=== PATIENT | female | born 1950 | race Caucasian/White ===

== ENCOUNTER → 2018-11-03 14:08 | Outpatient (CLI) | payer MEDICARE, OTHER, SELFPAY ==
--- NOTE | 2018-11-03 | DI.MG.S_ITS ---
BILATERAL DIGITAL SCREENING MAMMOGRAM 3D/2D WITH CAD: 11/03/2018 CLINICAL: Routine screening. Comparison is made to exams dated: 10/14/2017 mammogram, 09/10/2016 mammogram, and 08/23/2015 mammogram - [facility]. There are scattered fibroglandular elements in both breasts. Current study was also evaluated with a Computer Aided Detection (CAD) system. No significant masses, calcifications, or other findings are seen in either breast. There has been no significant interval change. IMPRESSION: NEGATIVE There is no mammographic evidence of malignancy. A 1 year screening mammogram is recommended. This exam was interpreted at Station ID: [id number]. NOTE: For mammograms, a report in lay terms will be sent to the patient. Approximately 15% of breast malignancies will not be visualized mammographically. In the management of a palpable breast mass, a negative mammogram must not discourage biopsy of a clinically suspicious lesion. Electronically Signed By: William kaplan/talha:11/04/2018 12:08:50 letter sent: Normal Exam ACR BI-RADS Category 1: Negative 3341F
== END ==
PROVIDERS: Family Provider Internal Medicine; Visit Provider Internal Medicine
DX: Z12.31 Encounter for screening mammogram for malignant neoplasm of breast (principal)
CPT/HCPCS: 77063; 77067

== ENCOUNTER → 2019-01-05 08:16 | Outpatient (CLI) | payer MEDICARE, OTHER, SELFPAY ==
[2019-01-05 09:33] LABS: Cholesterol 213 mg/dL (140-199); HDL Cholesterol 77 mg/dL (40-60); LDL Cholesterol Calculated 123 mg/dL (<100); Triglycerides 63 mg/dL (35-150)
[2019-01-05 09:46] LABS: Vitamin D 25 Hydroxy (D3) 42.6 ng/mL (30.0-100.0)
== END ==
PROVIDERS: Family Provider Internal Medicine; Visit Provider Internal Medicine
DX: M81.0 Age-related osteoporosis without current pathological fracture (principal); Z78.0 Asymptomatic menopausal state; E78.5 Hyperlipidemia, unspecified; Z90.722 Acquired absence of ovaries, bilateral
CPT/HCPCS: 36415; 77080; 80061; 82306

== ENCOUNTER 2019-03-04 08:20 | Day surgery (SDC) | payer MEDICARE, OTHER, SELFPAY ==
--- NOTE | 2019-03-04 | PATH_ITS ---
[facility] Accession Number: [id number] . 01 Material submitted: . CECAL POLYP . 02 Diagnosis: Cecal Polyp: Superficial portion of colorectal mucosa with a prominent lymphoid aggregate and no significant histomorphologic abnormality. [facility]/03/05/2019 . 02 Electronically signed: . Bernie Barnes MD, Pathologist NPI- [id number] . 01 Gross description: . CECAL POLYP: Received in formalin is 1 fragment(s) of rodgers, soft tissue measuring 0.2 x 0.2 x 0.2 cm which is entirely submitted and submitted entirely in 1 cassette(s) /DMC /DMC . 02 Pathologist provided ICD-10: K51.40 . 02 CPT . 671664 Performed at: 01 [facility] [address] [id number] MD William Ortega MD Phone: [phone] Performed at: 02 [facility] [address] [place], [place] [id number] MD Tatianna Patel MD Phone: [phone]
[2019-03-04 08:56] VITALS: BP 94/58; PULSE 68; RESP 15; TEMP 36.5; O2SAT 96; BMI 23.5
[2019-03-04] MEDS: SODIUM CHLORIDE 0.9% 1,000 ML 200 ML IV (09:13)
--- NOTE | 2019-03-04 10:07 | PM.HP.1 ---
History of Present Illness Chief complaint: [id number] Patient History Surgical History History of tonsillectomy Status post hysterectomy Social History household members: spouse Family & Social History Social History: household members spouse Meds Home Medications Medication Instructions Recorded Confirmed Type MELATONIN (#MELATONIN) PO HS #0 10/23/11 History [OIL BLEND] PO Q DAY #0 10/23/11 History Fish Oil #0 08/19/16 History nystatin 5 ml PO TID PRN #60 ml 08/19/16 Rx ranitidine HCl 150 mg PO BID 03/04/19 03/04/19 History Allergies Allergy/AdvReac Type Severity Reaction Status Date / Time levofloxacin Allergy Severe tendon Verified 03/04/19 08:54 issue codeine Allergy Mild Nausea Verified 03/04/19 08:54 Sulfa (Sulfonamide Allergy Mild possible Verified 03/04/19 08:54 Antibiotics) thrush [SULFA (SULFONAMIDE ANTIBIOTICS)] Exam Vital Signs (past 8 hours): - 03/04/19 08:56 Temperature 97.7 F Pulse Rate 68 Respiratory Rate 15 Blood Pressure 94/58 L Pulse Oximetry 96 Oxygen Delivery Method Room Air Narrative Exam Narrative: Awake alert and oriented x3, the pulse is equal round reactive to light, regular rate and rhythm, lungs clear to auscultation bilaterally, abdomen soft nontender nondistended, lower extremities without edema Assessment & Plan Assessment & Plan narrative: Family history of colon cancer for colonoscopy
[2019-03-04] MEDS: MIDAZOLAM 5 MG/5 ML VIAL IV (10:29)
[2019-03-04] MEDS: fentaNYL 250 MCG/5 ML INJ IV (10:35)
--- NOTE | 2019-03-04 10:43 | PM.OP.ENDO ---
Operative Date/Time/Diagnoses Date of procedure: 03/04/19 Procedure & Clinicians Study performed: Colonoscopy with biopsy Indications: Family history of colon cancer. Last colonoscopy 5 years ago Moderate conscious sedation was administered by the endoscopy nurse and supervised by the endoscopist. The following parameters were monitored: Oxygen saturation, heart rate, blood pressure, and response to care. Sedation: 8 mg midazolam, 200 mcg fentanyl Procedure Notes Procedure in detail: Prior to the procedure, history and physical was performed, and patient medications and allergies were reviewed. Preprocedure nursing history and assessment was reviewed. Patient identification and proposed procedure were verified by the physician and nurse in the procedure room. The physical status of the patient was reassessed after the procedure. After informed consent was obtained including risks, benefits, and alternatives, the scope was passed under direct vision. Throughout the procedure, the patient's blood pressure, pulse, and oxygen saturations were monitored continuously. The colonoscope was introduced through the anus and advanced to the cecum as identified by the appendiceal orifice and ileocecal valve. The patient tolerated the procedure well. Bowel prep was deemed adequate to detect polyps greater than 5 mm. GREG and perianal examinations were unremarkable. Retroflexion in the rectum was unremarkable Many medium mouth diverticula noted in the sigmoid colon A 2 mm sessile polyp in the cecum was removed with a Jumbo biopsy forceps and retrieved Impression: Sigmoid colon diverticulosis 2 mm cecal polyp removed Sedation minutes: 29 Plan for aftercare: Recommendations: Follow-up pathology results Repeat colonoscopy in 5 years for screening purposes High fiber diet Resume home medications Discharged home with escort
[2019-03-04 10:44] VITALS: BP 103/60; PULSE 80; RESP 12; TEMP 36.1; O2SAT 96
[2019-03-04 10:46] VITALS: BP 96/55; PULSE 80; RESP 10; O2SAT 96
[2019-03-04 10:51] VITALS: BP 114/56; PULSE 85; RESP 12; O2SAT 99
[2019-03-04 10:56] VITALS: BP 109/61; PULSE 86; RESP 14; TEMP 36.3; O2SAT 97
[2019-03-04 11:01] VITALS: BP 108/64; PULSE 88; RESP 15; TEMP 36.6; O2SAT 94
== END 2019-03-04 11:19 | disposition home or self-care (01) ==
PROVIDERS: Family Provider Internal Medicine; PCP Internal Medicine; Visit Provider Internal Medicine
PROC: 0DJD8ZZ Inspection of Lower Intestinal Tract, Via Natural or Artificial Opening Endoscopic (ICD-10-PCS; CPT 45378; principal; 2019-03-04 09:30)
DX: Z12.11 Encounter for screening for malignant neoplasm of colon (principal); Z80.0 Family history of malignant neoplasm of digestive organs; K57.30 Diverticulosis of large intestine without perforation or abscess without bleeding; K51.40 Inflammatory polyps of colon without complications
CPT/HCPCS: 45380; 88305; J2250; J3010

== ENCOUNTER → 2019-04-06 10:59 | Outpatient (CLI) | payer MEDICARE, OTHER, SELFPAY ==
--- NOTE | 2019-04-06 | DI.RAD.S_ITS ---
PROCEDURE: XR PELVIS 1-2V INDICATIONS: left buttock pain TECHNIQUE: A single view(s) of the pelvis acquired. COMPARISON: [facility], , PELVIS 1 OR 2 VIEWS, 03/27/2012, 14:49. FINDINGS: Bones: No fractures or dislocations. No suspicious bony lesions. Soft tissues: Visualized bowel gas pattern is normal. Mild increased quantity of stool. No suspicious soft tissue calcifications. IMPRESSION: No acute process. Dictated by: Martine Gonsalez M.D. on 04/06/2019 at 12:50 Approved by: Martine Gonsalez M.D. on 04/06/2019 at 12:51
--- NOTE | 2019-04-06 | DI.RAD.S_ITS ---
PROCEDURE: XR LUMBAR SPINE 2-3V INDICATIONS: left buttock pain TECHNIQUE: 3 views of the lumbar spine were acquired. COMPARISON: [facility], , L-SPINE 2-3 VIEWS, 03/27/2012, 14:49. FINDINGS: Bones: 5 [id number] vertebrae are present. Chronic, moderate leftward curvature secondary to asymmetric right-sided L2-3 disc disease. Mild leftward subluxation of L3 on 4. AP alignment is normal. Moderate to severe disc height loss at L2-3 on the right and L3-4 diffusely. Mild chronic disc height loss at L4-5 and L5-S1. No vertebral body compression fractures. No suspicious bony lesions. Soft tissues: Overlying bowel gas pattern is normal. No suspicious soft tissue calcifications. IMPRESSION: Progression of degenerative disc changes resulting in leftward curvature in the mid lumbar spine. Dictated by: Martine Gonsalez M.D. on 04/06/2019 at 12:51 Approved by: Martine Gonsalez M.D. on 04/06/2019 at 12:55
== END ==
PROVIDERS: Family Provider Internal Medicine; PCP Internal Medicine; Visit Provider Internal Medicine
DX: M79.18 Myalgia, other site (principal); M47.816 Spondylosis without myelopathy or radiculopathy, lumbar region
CPT/HCPCS: 72100; 72170

== ENCOUNTER → 2019-09-24 12:40 | Outpatient (CLI) | payer MEDICARE, OTHER, SELFPAY ==
--- NOTE | 2019-09-24 | DI.MRI.S_ITS ---
PROCEDURE: MR LUMBAR SPINE WO CON INDICATIONS: Low back pain TECHNIQUE: Noncontrast sagittal T1 spin echo and T2 fast echo, sagittal STIR, axial T1 and T2 fast spin echo through the lumbar spine. In cases with scoliosis, additional coronal T2 fast spin echo may be performed. COMPARISON: [facility], CR, L-SPINE 2-3 VIEWS, 03/27/2012, 14:49. [facility], CR, XR LUMBAR SPINE 2-3V, 04/06/2019, 11:18. FINDINGS: Image quality: Diagnostic, with note made of motion artifact. Alignment and Curvature: There is moderate levoconvex lumbar scoliosis Bone Marrow: Marrow is of normal overall signal. No acute vertebral body compression fractures. Spinal Cord: Conus medullaris terminates at the T12 level. Visualized cord demonstrates normal signal and size. Paraspinous Soft Tissues: No paravertebral masses. T12-L1: Normal appearance. L1-L2: The disc height is well-preserved. Loss of disc signal is seen at this level. Mild generalized disc bulge is seen. No significant neural foraminal or central canal narrowing can be seen. L2-L3: At least moderate loss of disc height and disc signal are seen. Reactive marrow endplate changes are seen, which are hyperintense on T1-weighted and T2-weighted imaging and most consistent with fatty metaplasia (Modic type II changes). Moderate disc bulge is seen, which is eccentric to the right. There is moderate right-sided and no left-sided neural foraminal narrowing seen. Moderate central canal narrowing is seen. L3-L4: At least moderate loss of disc height and disc signal are seen. Reactive marrow endplate changes are seen, which are hyperintense on T1-weighted and T2-weighted imaging and most consistent with fatty metaplasia (Modic type II changes). Moderate generalized disc bulge is seen. Moderate to prominent facet hypertrophy is seen. There is associated mild to moderate hypertrophy of the ligamentum flavum. There is moderate to severe left-sided and at least moderate right-sided neural foraminal narrowing seen. There is a degree of compression seen upon the exiting nerve roots. Moderate central canal narrowing is seen. L4-L5: Mild to moderate loss of disc height and disc signal are seen. Moderate disc bulge is seen, which is eccentric to the left. Moderate facet joint hypertrophy is seen. There is moderate to severe left-sided neural foraminal narrowing seen, with associated compression upon the exiting left L4 nerve root. No significant right-sided neural foraminal narrowing is seen. L5-S1: The disc height and disc signal are relatively well-preserved. Minimal to mild disc bulge is seen. There is mild left-sided and no right-sided neural foraminal narrowing seen. No central canal narrowing is seen. IMPRESSION: Levoconvex scoliosis and multiple levels of degenerative change are seen. These degenerative changes are most prominent at L2-L3 and L3-L4. Several levels of exiting nerve root compression can be seen. Dictated by: Jesse Toney M.D. on 09/24/2019 at 13:02 Approved by: Jesse Toney M.D. on 09/24/2019 at 13:10
== END ==
PROVIDERS: Family Provider Internal Medicine; PCP Internal Medicine; Visit Provider Physical Medicine & Rehabilitation Pain Medicine
DX: M54.5 Low back pain (principal); M47.816 Spondylosis without myelopathy or radiculopathy, lumbar region; M41.86 Other forms of scoliosis, lumbar region
CPT/HCPCS: 72148

== ENCOUNTER → 2019-10-22 14:21 | Outpatient (ROUT) | payer MEDICARE, OTHER, SELFPAY | PROVIDERS: Family Provider Internal Medicine; PCP Internal Medicine; Visit Provider Physician Assistant | DX: N39.0 Urinary tract infection, site not specified (principal) | CPT/HCPCS: 87077; 87086; 87186 ==

== ENCOUNTER → 2019-11-30 08:56 | Outpatient (CLI) | payer MEDICARE, OTHER, SELFPAY ==
[2019-11-30 10:54] LABS: BUN Creatinine Ratio 21.3 (6-22); Blood Urea Nitrogen 17 mg/dL (7-17); Calcium 9.2 mg/dL (8.4-10.2); Carbon Dioxide 28 mmol/L (22-32); Chloride 101 mmol/L (98-107); Cholesterol 247 mg/dL (140-199); Estimated Glomerular Filt Rate > 60.0 mL/min (>60); Glucose 100 mg/dL (80-110); HDL Cholesterol 80 mg/dL (40-60); HEMOLYSIS < 15 (0-50); LDL Cholesterol Calculated 155 mg/dL (<100); Potassium 4.5 mmol/L (3.4-5.1); Sodium 137 mmol/L (137-145); Triglycerides 60 mg/dL (35-150)
== END ==
PROVIDERS: PCP Internal Medicine; Visit Provider Internal Medicine
DX: E78.5 Hyperlipidemia, unspecified (principal); M81.0 Age-related osteoporosis without current pathological fracture
CPT/HCPCS: 36415; 80048; 80061

== ENCOUNTER → 2020-01-04 14:33 | Outpatient (ROUT) | payer MEDICARE, OTHER, SELFPAY | PROVIDERS: PCP Internal Medicine; Visit Provider Physician Assistant | DX: R39.9 Unspecified symptoms and signs involving the genitourinary system (principal) | CPT/HCPCS: 87086 ==

== ENCOUNTER → 2020-05-23 15:11 | Outpatient (CLI) | payer MEDICARE, OTHER, SELFPAY ==
--- NOTE | 2020-05-23 | DI.MG.S_ITS ---
BILATERAL DIGITAL SCREENING MAMMOGRAM 3D/2D WITH CAD: 05/23/2020 CLINICAL: Routine screening. Comparison is made to exams dated: 11/03/2018 mammogram, 10/14/2017 mammogram, 09/10/2016 mammogram, 08/23/2015 mammogram, and 07/02/2014 mammogram - [facility]. There are scattered fibroglandular elements in both breasts. Current study was also evaluated with a Computer Aided Detection (CAD) system. No significant masses, calcifications, or other findings are seen in either breast. There has been no significant interval change. IMPRESSION: NEGATIVE There is no mammographic evidence of malignancy. A 1 year screening mammogram is recommended. This exam was interpreted at Station ID: [id number]. NOTE: For mammograms, a report in lay terms will be sent to the patient. Approximately 15% of breast malignancies will not be visualized mammographically. In the management of a palpable breast mass, a negative mammogram must not discourage biopsy of a clinically suspicious lesion. Electronically Signed By: Adam frausto/talha:05/23/2020 17:24:59 letter sent: Normal Exam ACR BI-RADS Category 1: Negative 3341F
== END ==
PROVIDERS: PCP Internal Medicine; Referring Provider Internal Medicine; Visit Provider Internal Medicine
DX: Z12.31 Encounter for screening mammogram for malignant neoplasm of breast (principal)
CPT/HCPCS: 77063; 77067

== ENCOUNTER → 2020-05-28 14:16 | Outpatient (CLI) | payer MEDICARE, OTHER, SELFPAY ==
[2020-05-29 10:23] LABS: COVID19 Sendout Not Detected (Not Detect)
== END ==
PROVIDERS: PCP Internal Medicine; Visit Provider Physician Assistant
DX: Z11.59 Encounter for screening for other viral diseases (principal)
CPT/HCPCS: 87635

== ENCOUNTER 2020-05-31 07:26 | Day surgery (SDC) | payer MEDICARE, OTHER, SELFPAY ==
[2020-05-31] MEDS: PROPARACAINE 0.5% OPHTH SOL 2 DROPS EYE-OP (08:17)
[2020-05-31 08:19] VITALS: BP 97/67; PULSE 70; RESP 12; TEMP 36.6; O2SAT 96; BMI 23.2
[2020-05-31] MEDS: CATARACT EYE COMPOUND (10 DROPS/SYRINGE) 3 DROPS EYE-OP (08:25)
--- NOTE | 2020-05-31 09:29 | PM.PREOP ---
Pre-operative Note Interval Note History & Physical reviewed/Exam performed by Physician: Yes Changes to H&P: No
--- NOTE | 2020-05-31 09:29 | PM.OP.1 ---
Operative Date/Time/Diagnoses Pre-op diagnosis: Nuclear cataract right eye Procedure & Clinicians Procedure: Cataract Surgery Same procedure as scheduled: Yes Surgeon: Claudio Lawson Anesthesia Type: MAC +/- and Sedation Operative Notes Procedure in detail: Patient brought to the operating suite. Tetracaine drops placed in the right eye. Patient was prepped and draped in sterile manner. Wire lid speculum was placed in the eye. Betadine drops were placed on the eye. This was irrigated. Lidocaine jelly was placed on the eye. A paracentesis port was created with a side-port blade. 0.1 mL 1% preservative free lidocaine was injected into the anterior chamber. The anterior chamber was deepened with viscoelastic. 2.6 mm keratome was used to create a temporal clear corneal incision. Cystotome and Utrata forceps were used to create continuous tear capsulorrhexis. Balanced salt solution was used to hydro dissect the nucleus. The phacoemulsification handpiece was inserted and the nucleus was removed using the stop and chop technique. The irrigation aspiration handpiece was inserted and the remaining cortex was removed. Anterior chamber was deepened with viscoelastic. An Avila ZCB00 intraocular lens with a power of 21.5 was injected into the capsular bag. Irrigation aspiration handpiece was inserted and the remaining viscoelastic was removed. Incision was hydrated with balanced salt solution and found to be leak free with pressure with Weck-Chelsea sponges. 0.1 mL Vigamox injected anterior chamber. 0.3 mL Kenalog 10 mg was injected subconjunctivally. Lid speculum was removed. The patient left the operating room in excellent condition. Complications: none Post-operative Condition: stable Disposition: same day surgery
[2020-05-31] MEDS: MOXIFLOXACIN INJ 5 MG/ML VIAL EYE-OP (09:44)
[2020-05-31] MEDS: CHONDROIDTIN/SOD HYALURONATE 1.05 ML SYRINGE INTRAOCULA (09:44)
[2020-05-31] MEDS: LIDOCAINE JELLY 2% 5 ML 1 APPLIC TOP (09:44)
[2020-05-31] MEDS: TETRACAINE 0.5% OPHTH DROPS 4 ML 2 DROPS EYE-OP (09:45)
[2020-05-31] MEDS: BALANCED SALT IRRIG SOLN NO.2 500 ML, EPINEPHrine 1 MG IRR (09:45)
[2020-05-31] MEDS: PHENYLEPHRINE/LIDOCAINE VIAL (OR) 0.2 ML EYE-OP (09:45)
[2020-05-31] MEDS: TRIAMCINOLONE 50 MG/5 ML VIAL INJ (09:45)
[2020-05-31 10:10] VITALS: BP 112/71; PULSE 57; RESP 16; TEMP 36.2; O2SAT 100
== END 2020-05-31 10:19 | disposition home or self-care (01) ==
PROVIDERS: PCP Internal Medicine; Referring Provider Internal Medicine; Visit Provider Ophthalmology
PROC: (CPT 66984; principal; 2020-05-31 09:15)
DX: H25.11 Age-related nuclear cataract, right eye (principal); K21.9 Gastro-esophageal reflux disease without esophagitis
CPT/HCPCS: 66984; J0171; J2250; J3010; J3301

== ENCOUNTER → 2020-06-11 12:07 | Outpatient (CLI) | payer MEDICARE, OTHER, SELFPAY ==
[2020-06-12 18:10] LABS: COVID19 Sendout Not Detected (Not Detect)
== END ==
PROVIDERS: PCP Internal Medicine; Visit Provider Physician Assistant
DX: Z01.812 Encounter for preprocedural laboratory examination (principal)
CPT/HCPCS: 87635

== ENCOUNTER 2020-06-14 07:09 | Day surgery (SDC) | payer MEDICARE, OTHER, SELFPAY ==
[2020-06-14] MEDS: PROPARACAINE 0.5% OPHTH SOL 2 DROPS EYE-OP (07:40)
[2020-06-14] MEDS: CATARACT EYE COMPOUND (10 DROPS/SYRINGE) 3 DROPS EYE-OP (07:43)
[2020-06-14 07:44] VITALS: BMI 21.6
[2020-06-14 07:49] VITALS: BP 117/59; PULSE 70; RESP 20; TEMP 36.4; O2SAT 98
--- NOTE | 2020-06-14 08:42 | P.OP_ITS ---
Operative Date/Time/Diagnoses Pre-op diagnosis: Nuclear Cataract Left eye Post-op diagnosis: same Procedure & Clinicians Same procedure as scheduled: Yes Surgeon: Claudio Lawson Anesthesia Type: MAC +/- and Sedation Operative Notes Procedure in detail: Patient brought to the operating suite. Tetracaine drops placed in the left eye. Patient was prepped and draped in sterile manner. Wire lid speculum was placed in the eye. Betadine drops were placed on the eye. This was irrigated. Lidocaine jelly was placed on the eye. A paracentesis port was created with a side-port blade. 0.1 mL 1% preservative free lidocaine was injected into the anterior chamber. The anterior chamber was deepened with viscoelastic. 2.6 mm keratome was used to create a temporal clear corneal incision. Cystotome and Utrata forceps were used to create continuous tear capsulorrhexis. Balanced salt solution was used to hydro dissect the nucleus. The phacoemulsification handpiece was inserted and the nucleus was removed using the stop and chop technique. The irrigation aspiration handpiece was inserted and the remaining cortex was removed. Anterior chamber was deepened with viscoe lastic. An Avila ZCB00 intraocular lens with a power of 21.5 was injected into the capsular bag. Irrigation aspiration handpiece was inserted and the remaining viscoelastic was removed. Incision was hydrated with balanced salt solution and found to be leak free with pressure with Weck-Chelsea sponges. 0.1 mL Vigamox injected anterior chamber. 0.3 mL Kenalog 10 mg was injected subconjunctivally. Lid speculum was removed. The patient left the operating room in excellent condition. Complications: none Post-operative Condition: stable Disposition: same day surgery
--- NOTE | 2020-06-14 08:42 | PM.PREOP ---
Pre-operative Note Interval Note History & Physical reviewed/Exam performed by Physician: Yes Changes to H&P: No
[2020-06-14] MEDS: MOXIFLOXACIN INJ 5 MG/ML VIAL EYE-OP (09:01)
[2020-06-14] MEDS: CHONDROIDTIN/SOD HYALURONATE 1.05 ML SYRINGE INTRAOCULA (09:01)
[2020-06-14] MEDS: PHENYLEPHRINE/LIDOCAINE VIAL (OR) 0.2 ML EYE-OP (09:01)
[2020-06-14] MEDS: LIDOCAINE JELLY 2% 5 ML 1 APPLIC TOP (09:01)
[2020-06-14] MEDS: TRIAMCINOLONE 50 MG/5 ML VIAL INJ (09:02)
[2020-06-14] MEDS: TETRACAINE 0.5% OPHTH DROPS 4 ML 2 DROPS EYE-OP (09:02)
[2020-06-14] MEDS: BALANCED SALT IRRIG SOLN NO.2 500 ML, EPINEPHrine 1 MG IRR (09:02)
[2020-06-14 09:15] VITALS: BP 117/64; PULSE 88; RESP 16; TEMP 36.6; O2SAT 100
== END 2020-06-14 09:30 | disposition home or self-care (01) ==
PROVIDERS: PCP Internal Medicine; Referring Provider Ophthalmology; Visit Provider Ophthalmology
PROC: (CPT 66984; principal; 2020-06-14 08:45)
DX: H25.12 Age-related nuclear cataract, left eye (principal)
CPT/HCPCS: 66984; J0171; J2250; J3301

== ENCOUNTER → 2020-12-26 09:24 | Outpatient (CLI) | payer MEDICARE, OTHER, SELFPAY ==
--- NOTE | 2020-12-26 09:28 | DI.RAD.S_ITS ---
PROCEDURE: XR LUMBAR SPINE MIN 4V INDICATIONS: LBP and left hip pain TECHNIQUE: 4 views of the lumbar spine were acquired. COMPARISON: [facility], CR, XR LUMBAR SPINE 2-3V, 04/06/2019, 11:18. FINDINGS: Bones: 5 nonrib-bearing vertebrae are present. There is moderate levoscoliosis of thoracolumbar spine centered at L1-2 level worsened since 2019 study. Degenerative endplate changes at L2-3 through L5-S1 levels are seen not significantly changed from prior study. No vertebral body compression fractures. No suspicious bony lesions. Soft tissues: Overlying bowel gas pattern is normal. No suspicious soft tissue calcifications. Oblique images: No pars defects. Bilateral bony foraminal stenosis are likely present at L3-4 and L4-5 levels. IMPRESSION: Interval slight worsening of leftward scoliosis of lumbar spine centered at L1-2 level. Degenerative disc disease at L2-3 through L5-S1 levels. No gross pars defect. No acute compression fracture. Suggestion of bilateral bony foraminal stenosis at L3-4 and L4-5 levels. Dictated by: Rudolph Riddle M.D. on 12/26/2020 at 9:49 Approved by: Rudolph Riddle M.D. on 12/26/2020 at 9:50
== END ==
PROVIDERS: PCP Internal Medicine; Referring Provider Physical Medicine & Rehabilitation; Visit Provider Physical Medicine & Rehabilitation
DX: M51.16 Intervertebral disc disorders with radiculopathy, lumbar region (principal); M51.17 Intervertebral disc disorders with radiculopathy, lumbosacral region; M25.552 Pain in left hip; M16.9 Osteoarthritis of hip, unspecified; M41.9 Scoliosis, unspecified
CPT/HCPCS: 72110

== ENCOUNTER → 2021-01-06 08:09 | Outpatient (CLI) | payer MEDICARE, OTHER, SELFPAY ==
--- NOTE | 2021-01-06 08:10 | DI.MRI.S_ITS ---
PROCEDURE: MR LUMBAR SPINE WO CON INDICATIONS: UPDATE IMAGING TECHNIQUE: Noncontrast sagittal T1 spin echo and T2 fast echo, sagittal STIR, axial T1 and T2 fast spin echo through the lumbar spine. In cases with scoliosis, additional coronal T2 fast spin echo may be performed. COMPARISON: [facility], CR, XR LUMBAR SPINE MIN 4V, 12/26/2020, 9:28. [facility], MR, MR LUMBAR SPINE WO CON, 09/24/2019, 12:58. FINDINGS: Image quality: Excellent. Alignment and Curvature: There is leftward curvature with apex at L2-3. Bone Marrow: Marrow is of normal overall signal. Schmorl's nodes are noted along the inferior endplates of L2, L3, L4 as well as superior endplates of L3, L4 and L5. No acute vertebral body compression fractures. Spinal Cord: Conus medullaris terminates at the T12 level. Visualized cord demonstrates normal signal and size. Paraspinous Soft Tissues: No paravertebral masses. Discs: Moderate to severe desiccation is present throughout the lumbar spine most severe at L2-3, L3-4 and L4-5. L1-L2: Mild disc bulge without spinal stenosis or foraminal narrowing. Facet and ligamentum flavum hypertrophy. No interval change. L2-L3: Mild asymmetric disc bulge causing mild compromise of the right lateral recess. Moderate right foraminal narrowing is present. Moderate spinal stenosis. Facet and ligamentum flavum hypertrophy are present. No interval change. L3-L4: Mild disc bulge with moderate spinal stenosis. Moderate to severe left and moderate right foraminal narrowing. There is a slight right and mild left appearance of compression of the exiting nerve root, unchanged. Facet and ligamentum flavum hypertrophy are present. L4-L5: Mild disc bulge with mild leftward component. Moderate spinal stenosis is present. Moderate to severe left foraminal narrowing with mild compression of the exiting left L4 nerve root. Facet and ligamentum flavum hypertrophy are present. No interval change. L5-S1: Mild disc bulge without spinal stenosis. Mild left foraminal narrowing with facet and ligamentum flavum hypertrophy. IMPRESSION: 1. Multilevel degenerative changes, stable compared to prior exam. 2. Multilevel foraminal narrowing most severe at L3-4, L4-5 secondary to facet/ligamentum flavum arthropathy. Dictated by: Juanita Hagan M.D. on 01/06/2021 at 10:51 Approved by: Juanita Hagan M.D. on 01/06/2021 at 11:14
== END ==
PROVIDERS: PCP Internal Medicine; Referring Provider Physical Medicine & Rehabilitation; Visit Provider Physical Medicine & Rehabilitation
DX: M47.26 Other spondylosis with radiculopathy, lumbar region (principal); M48.061 Spinal stenosis, lumbar region without neurogenic claudication; M41.80 Other forms of scoliosis, site unspecified
CPT/HCPCS: 72148

== ENCOUNTER → 2021-01-30 14:24 | Outpatient (CLI) | payer MEDICARE, OTHER, SELFPAY ==
[2021-01-30 16:34] LABS: COVID19 -Nasal RAPID Negative (Negative)
== END ==
PROVIDERS: PCP Internal Medicine; Visit Provider Physical Medicine & Rehabilitation
DX: Z20.822 Contact with and (suspected) exposure to COVID-19 (principal)
CPT/HCPCS: 87635; C9803

== ENCOUNTER 2021-01-31 14:13 | Outpatient (CLI) | payer MEDICARE, OTHER, SELFPAY ==
[2021-01-31] VITALS (7 sets, daily range): BP systolic 103–137; BP diastolic 53–63; PULSE 67–83; RESP 12–18; TEMP 36.7; O2SAT 98–100
--- NOTE | 2021-01-31 14:14 | DI.RAD.S_ITS ---
PROCEDURE: PAIN SI JOINT INJECTION INDICATIONS: SACROILIAC DISORDER COMPARISON: None. FINDINGS: Fluoroscopic spot filming was performed to verify placement of spinal needles at the left sacroiliac joint as labeled on the films. Appropriate location(s) of the needle tip(s) was confirmed by injection of iodinated contrast. Dictated by: Jeovany Melendrez M.D. on 01/31/2021 at 15:04 Approved by: Jeovany Melendrez M.D. on 01/31/2021 at 15:04
[2021-01-31] MEDS: MIDAZOLAM 5 MG/5 ML VIAL IV (14:33)
[2021-01-31] MEDS: BETAMETHASONE 30 MG/5 ML MDV 12 MG INJ (14:36)
[2021-01-31] MEDS: BUPIVACAINE 0.5% (PF) VIAL 2 ML INJ (14:36)
[2021-01-31] MEDS: IOPAMIDOL 15 ML VIAL 3 ML INJ (14:36)
--- NOTE | 2021-01-31 14:47 | P.PCN_ITS ---
Date/Time/Diagnoses Date of procedure: 01/31/21 Time of procedure: 14:47 Pre-procedure diagnosis: Sacroiliac Joint Pain/DJD Post-procedure diagnosis: same Procedure Notes Procedure: Fluoroscopically guided contrast controlled left sacroiliac joint injection Indications: Lynn is referred by for treatment of left sacroiliac joint DJD Physician: Denis Maurer Total Fluoroscopy time (seconds): 10 Total sedation minutes: 8 Complications: none Procedure in detail & Post-procedure care: DESCRIPTION OF PROCEDURE Fluoroscopic guided, contrast controlled left sacroiliac joint injection Following review of allergies and review of potential side effects and complications, including, but not necessarily limited to, infection, allergic reaction, local tissue breakdown, temporary as well as permanent nerve injury, paralysis, stroke and possible , the patient indicated that they understood and agreed to proceed. An informed consent was signed by the patient, witnessed by a nurse, and placed in the patient's chart. Additionally, other treatment options including modalities, medications, and physical therapy were reviewed with the patient. After review of previous anaesthesic history and IV conscious sedation the patient was deemed safe to proceed with today?s procedure with IV conscious sedation as ASA class II designation. Safety time-out was performed to confirm patient ID, procedure to be performed and site of procedure. IV sedation was accomplished with a combination of 2mg of Versed administered by the RN after DO order, titrated to patient comfort during the course of the procedure while the patient remained responsive to all verbal commands. In the prone position following sterile prep and drape of the pelvic region, the hyper lucency on in the inferior aspect of the left sacroiliac joint was identified fluoroscopically the skin was anesthetized be a 25 gauge 1 eventual with approximately 2cc of 1% lidocaine solution. At this point, a 22 gauge 3inch spinal needle was atraumatically introduced and advanced under fluoroscopic guidance into the inferior aspect of the left sacroiliac joint. Following negative aspiration, approximately 0.3cc of Isovue-300 was injected c onfirming intra-articular placement without vascular uptake. Radiographic data, including multiple fluoroscopic views of the pelvis, reveals a spinal needle in the left sacroiliac joint hyper lucent zone. Subsequent view show flow contrast tear superiorly and inferiorly within the joint capsule without vascular intrathecal uptake. At this point a total of 1cc or 0.5% Marcaine was combined with 1cc of 6mg of betamethasone was injected without incident. The patient tolerated the procedure well without signs or symptoms of complications prior to transfer to the recovery area for further monitoring. The patient was then transferred to the recovery area with a bur observed for an appropriate time after the injection. The patient reverted a vas score of 7 prior to the procedure and postprocedure vas of 1. POSTOP INSTRUCTIONS The patient was provided with a pain like to continue to record the patient's response to the target specific procedure prior to the patient's follow-up visit with the referring physician. Additionally, specific post injection care instructions and a contact number to our office were provided if concerns arise regarding the possible complications associated with procedure are suspected.
== END 2021-01-31 15:10 | disposition home or self-care (01) ==
LOC: RAD 14:13
PROVIDERS: PCP Internal Medicine; Referring Provider Internal Medicine; Visit Provider Physical Medicine & Rehabilitation
DX: M53.3 Sacrococcygeal disorders, not elsewhere classified (principal); M46.1 Sacroiliitis, not elsewhere classified
CPT/HCPCS: 27096; J0702; J2250; J3010

== ENCOUNTER → 2021-02-13 07:07 | Outpatient (CLI) | payer MEDICARE, OTHER, SELFPAY ==
[2021-02-13 08:26] LABS: Alanine Aminotransferase 18 IU/L (<35); Albumin 3.9 g/dL (3.5-5.0); Albumin Globulin Ratio 1.6 (1.0-2.8); Alkaline Phosphatase 52 U/L (38-126); Aspartate Aminotransferase 27 IU/L (14-36); BUN Creatinine Ratio 26.3 (6-22); Bilirubin Total 0.4 mg/dL (0.2-1.3); Blood Urea Nitrogen 20 mg/dL (7-17); Calcium 9.1 mg/dL (8.4-10.2); Carbon Dioxide 29 mmol/L (22-32); Chloride 101 mmol/L (98-107); Cholesterol 223 mg/dL (140-199); Estimated Glomerular Filt Rate > 60.0 mL/min (>60); Globulin 2.5 g/dL (1.7-4.1); Glucose 100 mg/dL (80-110); HDL Cholesterol 71 mg/dL (40-60); HEMOLYSIS < 15 (0-50); LDL Cholesterol Calculated 141 mg/dL (<100); Potassium 3.9 mmol/L (3.4-5.1); Sodium 132 mmol/L (137-145); Total Protein 6.4 g/dL (6.3-8.2); Triglycerides 53 mg/dL (35-150)
== END ==
PROVIDERS: PCP Internal Medicine; Referring Provider Internal Medicine; Visit Provider Internal Medicine
DX: M81.0 Age-related osteoporosis without current pathological fracture (principal); E78.5 Hyperlipidemia, unspecified
CPT/HCPCS: 36415; 80053; 80061

== ENCOUNTER → 2021-02-18 08:08 | Outpatient (CLI) | payer MEDICARE, OTHER, SELFPAY ==
[2021-02-18 09:20] LABS: Alanine Aminotransferase 17 IU/L (<35); Albumin Globulin Ratio 1.7 (1.0-2.8); Alkaline Phosphatase 58 U/L (38-126); Aspartate Aminotransferase 26 IU/L (14-36); Bilirubin Total 0.4 mg/dL (0.2-1.3); Blood Urea Nitrogen 20 mg/dL (7-17); Calcium 9.3 mg/dL (8.4-10.2); Carbon Dioxide 26 mmol/L (22-32); Chloride 102 mmol/L (98-107); Estimated Glomerular Filt Rate > 60.0 mL/min (>60); Globulin 2.3 g/dL (1.7-4.1); Glucose 102 mg/dL (80-110); HEMOLYSIS < 15 (0-50); Potassium 3.9 mmol/L (3.4-5.1); Sodium 135 mmol/L (137-145); Total Protein 6.3 g/dL (6.3-8.2)
== END ==
PROVIDERS: PCP Internal Medicine; Referring Provider Internal Medicine; Visit Provider Internal Medicine
DX: E78.5 Hyperlipidemia, unspecified (principal)
CPT/HCPCS: 36415; 80053

== ENCOUNTER → 2021-02-20 11:04 | Outpatient (ROUT) | payer MEDICARE, OTHER, SELFPAY ==
[2021-02-20 11:23] LABS: Creatine Kinase 46 U/L (30-135)
== END ==
PROVIDERS: PCP Internal Medicine; Visit Provider Internal Medicine
DX: R82.998 Other abnormal findings in urine (principal)
CPT/HCPCS: 82550

== ENCOUNTER → 2021-02-22 10:10 | Outpatient (CLI) | payer MEDICARE, OTHER, SELFPAY ==
--- NOTE | 2021-02-22 10:15 | DI.RAD.S_ITS ---
PROCEDURE: XR DEXA AXIAL SKELETON INDICATIONS: Chest pain, unspecified COMPARISON: [facility], CR, XR DEXA AXIAL SKELETON, 01/05/2019, 10:32. FINDINGS: This blank DEXA report has been sent in error by the PACS system. The correct and complete report will be forthcoming in 1-2 days. Thank you for your patience and understanding. Dictated by: Bonny Bowers MD, PhD on 02/22/2021 at 17:27 Approved by: Bonny Bowers MD, PhD on 02/22/2021 at 17:28
== END ==
PROVIDERS: PCP Internal Medicine; Referring Provider Internal Medicine; Visit Provider Internal Medicine
DX: M81.0 Age-related osteoporosis without current pathological fracture (principal); Z78.0 Asymptomatic menopausal state; R30.0 Dysuria; R07.9 Chest pain, unspecified; Z90.722 Acquired absence of ovaries, bilateral
CPT/HCPCS: 77080; 77081; 81001; 87086

== ENCOUNTER → 2021-02-22 19:09 | Outpatient (ROUT) | payer MEDICARE, OTHER, SELFPAY ==
[2021-02-22 19:12] LABS: Bacteria Urine None Seen
[2021-02-22 19:44] LABS: Appearance Urine UA CLEAR; Bilirubin Urine UA NEGATIVE (NEGATIVE); Color Urine UA YELLOW; Glucose Urine UA NEGATIVE (Negative); Ketones Urine UA NEGATIVE (NEGATIVE); Leukocyte Esterase Urine UA NEGATIVE (NEGATIVE); Nitrite Urine UA NEGATIVE (Negative); Occult Blood Urine UA TRACE-INTACT (Negative); Protein Urine UA NEGATIVE (Negative); Urobilinogen Urine UA 0.2 E.U./dL (0.2)
[2021-02-22 19:50] LABS: RBC Urine 0-1/HPF (0-5/HPF); WBC Urine 0-1/HPF (0-5/HPF)
== END ==
PROVIDERS: PCP Internal Medicine; Visit Provider Internal Medicine
DX: R30.0 Dysuria (principal)
CPT/HCPCS: 81001; 87086

== ENCOUNTER → 2021-03-04 11:18 | Outpatient (CLI) | payer MEDICARE, OTHER, SELFPAY ==
[2021-03-04 12:30] LABS: COVID19 -Nasal RAPID Negative (Negative)
== END ==
PROVIDERS: PCP Internal Medicine; Visit Provider Physician Assistant
DX: Z20.822 Contact with and (suspected) exposure to COVID-19 (principal)
CPT/HCPCS: 87635; C9803

== ENCOUNTER → 2021-03-06 07:41 | Outpatient (CLI) | payer MEDICARE, OTHER, SELFPAY ==
--- NOTE | 2021-03-06 | DI.NM.S_ITS ---
PROCEDURE: NM RUBEN PERF SPECT REST & STR Rest and exercise myocardial perfusion SPECT with gated imaging and ejection fraction RADIOPHARMACEUTICAL: 9.7 mCi Tc-99m sestamibi IV at rest and 27.2 mCi Tc-99m sestamibi IV at peak exercise. A one day-protocol was performed. INDICATIONS: chest pain TECHNIQUE: Radiopharmaceutical was injected at peak stress test, and also at rest. SPECT images were obtained. SPECT myocardial perfusion images were displayed in short axis, horizontal long axis, and vertical long axis views. Gated images were reviewed using [employer] software. COMPARISON: None. CARDIAC STRESS: A standard Ron treadmill exercise tolerance test was performed by the patient under the supervision of an attending staff. The patient exercised for 5 minutes and 41 seconds; functional aerobic impairment (NELA) is 0%. Hemodynamic data: There is normal blood pressure and heart rate response to exercise stress. Patient achieved 116% of maximum predicted heart rate at peak exercise. Symptoms: Patient denied chest pain during exercise. EKG: No diagnostic EKG changes of ischemia; no ectopy. FINDINGS: Raw data: There is good myocardial labeling by radiotracer. No significant motion artifacts. Smca-tt-[id number] ratio is 0.2 (normal is less than 0.38 for sestamibi tracer, and less than 0.50 for thallium tracer). Left ventricle function: Gated images demonstrate normal left ventricle wall thickening. No segmental wall motion abnormality. No transient ischemic dilation; TID is 1.05 (normal less than 1.3). The left ventricle resting end-diastolic volume is 87 mL. Left ventricle stress ejection fraction is 85%; normal values are above 45%. Myocardial perfusion: There is normal distribution of activity in the left and right ventricular myocardium. No fixed or reversible perfusion defects. IMPRESSION: Low risk, normal treadmill nuclear stress test 1) No perfusion evidence of ischemia or infarction. 2) Normal left ventricular size, wall motion, and systolic function (EF post stress 85%). 3) No ECG evidence of ischemia. 4) No angina during the study. 5) Average exercise capacity (7.0 METs, NELA 0%). Target heart rate achieved. Appropriate BP response to exercise. 6) No prior nuclear stress test available for comparison. Dictated by: Beronica Reza MD on 03/07/2021 at 12:50 Approved by: Beronica Reza MD on 03/07/2021 at 12:52
== END ==
PROVIDERS: PCP Internal Medicine; Referring Provider Internal Medicine; Visit Provider Internal Medicine
DX: R07.9 Chest pain, unspecified (principal)
CPT/HCPCS: 78452; 93017; A9502

== ENCOUNTER → 2021-03-27 07:12 | Outpatient (CLI) | payer MEDICARE, OTHER, SELFPAY ==
--- NOTE | 2021-03-27 07:31 | DI.RAD.S_ITS ---
PROCEDURE: XR CERVICAL SPINE 4V OR 5V INDICATIONS: Chronic progressive neck pain TECHNIQUE: 5 views of the cervical spine acquired. COMPARISON: None. FINDINGS: Bones: No fractures or dislocations to the T1 level. There is trace C4-C5 anterolisthesis. Oblique images demonstrate no bony foraminal stenoses. Moderate C5-C6 and C6-C7 degenerative disc disease. Mild C2-C3, C3-C4, C4-C5 and C7-T1 degenerative disc disease. Mild C3-C4, C4-C5, C5-C6, C6-C7 and C7-T1 facet arthropathy. Soft tissues: No prevertebral soft tissue swelling. IMPRESSION: 1. Multilevel degenerative disc disease. 2. Multilevel facet arthropathy. 3. No fracture. No acute osseous lesion. If symptoms and/or clinical suspicion for pathology persists, evaluation with MRI should be considered for further assessment. Dictated by: Bonny Bowers MD, PhD on 03/27/2021 at 17:17 Approved by: Bonny Bowers MD, PhD on 03/27/2021 at 17:19
[2021-03-27 07:56] LABS: Alanine Aminotransferase 19 IU/L (<35); Albumin 3.9 g/dL (3.5-5.0); Albumin Globulin Ratio 1.4 (1.0-2.8); Alkaline Phosphatase 56 U/L (38-126); Aspartate Aminotransferase 32 IU/L (14-36); BUN Creatinine Ratio 24.3 (6-22); Bilirubin Total 0.3 mg/dL (0.2-1.3); Blood Urea Nitrogen 18 mg/dL (7-17); Calcium 8.9 mg/dL (8.4-10.2); Carbon Dioxide 27 mmol/L (22-32); Chloride 100 mmol/L (98-107); Cholesterol 152 mg/dL (140-199); Estimated Glomerular Filt Rate > 60.0 mL/min (>60); Globulin 2.7 g/dL (1.7-4.1); Glucose 103 mg/dL (80-110); HDL Cholesterol 71 mg/dL (40-60); HEMOLYSIS < 15 (0-50); LDL Cholesterol Calculated 71 mg/dL (<100); Potassium 4.3 mmol/L (3.4-5.1); Sodium 133 mmol/L (137-145); Total Protein 6.6 g/dL (6.3-8.2); Triglycerides 50 mg/dL (35-150)
== END ==
PROVIDERS: PCP Internal Medicine; Referring Provider Internal Medicine; Visit Provider Internal Medicine
DX: E78.5 Hyperlipidemia, unspecified (principal); M54.12 Radiculopathy, cervical region
CPT/HCPCS: 36415; 72050; 80053; 80061

== ENCOUNTER → 2021-04-04 08:02 | Outpatient (CLI) | payer MEDICARE, OTHER, SELFPAY ==
[2021-04-04 15:27] LABS: COVID19 -Nasal RAPID Negative (Negative)
== END ==
PROVIDERS: PCP Internal Medicine; Visit Provider Physical Medicine & Rehabilitation
DX: Z20.822 Contact with and (suspected) exposure to COVID-19 (principal)
CPT/HCPCS: 87635; C9803

== ENCOUNTER 2021-04-06 14:58 | Outpatient (CLI) | payer MEDICARE, OTHER, SELFPAY ==
[2021-04-06] VITALS (10 sets, daily range): BP systolic 102–136; BP diastolic 52–67; PULSE 62–75; RESP 10–20; TEMP 36.6; O2SAT 97–100
--- NOTE | 2021-04-06 15:01 | DI.RAD.S_ITS ---
PROCEDURE: PAIN L/SI FACET INJ/BLK 1STL INDICATIONS: SPONDYLOSIS COMPARISON: None. FINDINGS: Fluoroscopic spot filming was performed to verify placement of spinal needles at the left L3-L4, L4-L5 and L5-S1 facet level(s), as labeled on the films. Appropriate location(s) of the needle tip(s) was confirmed by injection of iodinated contrast. IMPRESSION: Access needles at the left L3-L4, L4-L5 and L5-S1 facet levels. Dictated by: Bonny Bowers MD, PhD on 04/06/2021 at 16:41 Approved by: Bonny Bowers MD, PhD on 04/06/2021 at 16:42
[2021-04-06] MEDS: BUPIVACAINE 0.5% (PF) VIAL 2 ML INJ (15:40)
[2021-04-06] MEDS: IOPAMIDOL 15 ML VIAL 3 ML INJ (15:40)
[2021-04-06] MEDS: BETAMETHASONE 30 MG/5 ML MDV 12 MG INJ (15:41)
[2021-04-06] MEDS: LIDOCAINE 1% 20 ML 10 ML INJ (15:43)
[2021-04-06] MEDS: MIDAZOLAM 5 MG/5 ML VIAL IV (15:43)
--- NOTE | 2021-04-06 15:49 | P.PCN_ITS ---
Date/Time/Diagnoses Date of procedure: 04/06/21 Time of procedure: 15:49 Pre-procedure diagnosis: 1. FACET ARTHROPATHY, 2. AXIAL LBP, 3. MULTILEVEL DDD Post-procedure diagnosis: same Procedure Notes Procedure: 1. FLUOROSCOPICALLY GUIDED CONTRAST CONTROLLED FACET JOINT INJECTIONS LEFT L3/4, L4/5, L5/S1 Indications: Lynn is referred by Dr. Fernandez for treatment of Axial LBP Physician: Denis Maurer Total Fluoroscopy time (seconds): 6 Total sedation minutes: 8 Complications: none Procedure in detail & Post-procedure care: FINDINGS Multilevel Facet Arthropathy with Clinically significant axial LBP DESCRIPTION OF PROCEDURE Fluoroscopically guided, contrast-controlled left L3/4, L4/5, L5/S1 facet joint injections. Following review of allergy and review of potential side effects and complications, including, but not necessarily limited to, infection, allergic reaction, local tissue breakdown, stroke, temporary or permanent nerve injury, paralysis, and possible , the patient indicated that the patient understood and agreed to proceed. An informed consent document was signed by the patient, witnessed by a nurse, and placed in the patient's chart. Additionally, other treatment options including medications, modalities, and physical therapy were reviewed with the patient. After review of previous anaesthesic history and IV conscious sedation the patient was deemed safe to proceed with today?s procedure with IV conscious sedation as ASA class II designation. Safety time-out was performed to confirm patient ID, procedure to be performed and site of procedure. IV sedation was accomplished with a combination of 3mg of Versed was administered by the RN after DO order, titrated to patient comfort during the course of the procedure while the patient remained responsive to all verbal commands. In the prone position, following sterile prep and drape of the lumbar region, the posterior aspect of the left L3/4, L4/5, L5/S1 facet joints were identified fluoroscopically. The skin was anesthetized via a 25-gauge 1.5-inch needle with 1% lidocaine solution into the corresponding facet joints. At this point, a 22- gauge 3.5-inch spinal needle was atraumatically introduced and advanced under fluoroscopic guidance into the corresponding facet joints. Following negative aspiration, injections of approximately 0.2-cc of Isovue 200 confirmed interarticular placement without vascular uptake. Radiological data, including multiple fluoroscopic views of the lumbosacral spine, reveal a spinal needle at the left L3/4, L4/5, L5/S1 facet joints. Subsequent views show flow of contrast material both superiorly and inferiorly within the joint space without vascular or intrathecal uptake. At this point, a total of 0.5 cc including a mixture of 0.25cc Marcaine and 0.25cc betamethasone was injected without complication into each of the corresponding facet joints. The procedure tolerated the procedure well without signs or symptoms of complications prior to transfer to the recovery area continued monitoring without incident. The patient was then transferred to the recovery area where they were observed for an appropriate period of time after the injection. The patient reported a VAS score of 7 prior to the procedure and a post-procedure VAS of 0. POST OP INSTRUCTIONS The patient was provided a Pain Log to continue to record their response to the target-specific procedure prior to follow-up visit with their referring physician. Additionally, specific post-injection care instructions and a contact number to our office were provided if concerns arise regarding possible complications associated with the procedure are suspected.
== END 2021-04-06 16:20 | disposition home or self-care (01) ==
LOC: RAD 15:00
PROVIDERS: PCP Internal Medicine; Referring Provider Physical Medicine & Rehabilitation; Visit Provider Physical Medicine & Rehabilitation
DX: M47.816 Spondylosis without myelopathy or radiculopathy, lumbar region (principal); M47.817 Spondylosis without myelopathy or radiculopathy, lumbosacral region; M51.36 Other intervertebral disc degeneration, lumbar region; M51.37 Other intervertebral disc degeneration, lumbosacral region; M54.5 Low back pain
CPT/HCPCS: 64493; 64494; 64495; J0702; J2250; J3010

== ENCOUNTER → 2021-07-03 08:48 | Outpatient (CLI) | payer MEDICARE, OTHER, SELFPAY ==
[2021-07-03 13:40] LABS: COVID19 -Nasal RAPID Negative (Negative)
== END ==
PROVIDERS: PCP Internal Medicine; Visit Provider Physical Medicine & Rehabilitation
DX: Z20.822 Contact with and (suspected) exposure to COVID-19 (principal); R05 Cough
CPT/HCPCS: 71046; 87635

== ENCOUNTER → 2021-07-03 10:15 | Outpatient (CLI) | payer MEDICARE, OTHER, SELFPAY ==
--- NOTE | 2021-07-03 | DI.RAD.S_ITS ---
PROCEDURE: XR CHEST 2V INDICATIONS: COUGH TECHNIQUE: 2 views of the chest were acquired. COMPARISON: [facility], , CHEST 2 VIEW, 10/23/2011, 14:52. FINDINGS: Surgical changes and devices: None. Lungs and pleura: Lungs are clear. No pleural effusions or pneumothorax. Mediastinum: Mediastinal contours are normal. Heart size is normal. Bones and chest wall: No suspicious bony abnormalities. Soft tissues appear unremarkable. IMPRESSION: No acute cardiopulmonary disease. Dictated by: Mehdi Jessica [facility] Interpreted: Jos Wing MD on 07/03/2021 at 10:33 Transcribed by: ANTHONY on 07/03/2021 at 10:34 Approved by: Jos Wing M.D. on 07/03/2021 at 15:41
== END ==
PROVIDERS: PCP Internal Medicine; Referring Provider Internal Medicine; Visit Provider Internal Medicine
DX: R05 Cough (principal)
CPT/HCPCS: 71046

== ENCOUNTER 2021-07-04 15:30 | Outpatient (CLI) | payer MEDICARE, OTHER, SELFPAY ==
--- NOTE | 2021-07-04 15:32 | DI.RAD.S_ITS ---
PROCEDURE: PAIN L/S TRANSFORAMINAL INJECT INDICATIONS: SPONDYLOSIS COMPARISON: [facility], , PAIN L/SI FACET INJ/BLK 1STL, 04/06/2021, 15:41. FINDINGS: Fluoroscopic spot filming was performed to verify placement of a spinal needle at the L3-L4 level, as labeled on the films. Appropriate location of the needle tip was confirmed by injection of iodinated contrast. IMPRESSION: Intraprocedural examination within normal limits. Dictated by: Jesse Toney M.D. on 07/04/2021 at 15:50 Approved by: Jesse Toney M.D. on 07/04/2021 at 15:50
[2021-07-04 15:43] VITALS: BP 109/68; PULSE 65; RESP 15; TEMP 36.1; O2SAT 99
[2021-07-04 15:58] VITALS: BP 126/59; PULSE 67; RESP 12; O2SAT 100
[2021-07-04] MEDS: MIDAZOLAM 5 MG/5 ML VIAL IV (15:58)
[2021-07-04 16:03] VITALS: BP 101/52; PULSE 63; RESP 12; O2SAT 100
[2021-07-04] MEDS: DEXAMETHASONE 10 MG/ML VIAL 20 MG INJ (16:05)
[2021-07-04] MEDS: BETAMETHASONE 30 MG/5 ML MDV 6 MG INJ (16:05)
[2021-07-04] MEDS: BUPIVACAINE 0.25% (PF) VIAL 2 ML INJ (16:05)
[2021-07-04] MEDS: IOPAMIDOL 15 ML VIAL 3 ML INJ (16:05)
[2021-07-04 16:08] VITALS: BP 111/58; PULSE 63; RESP 10; O2SAT 100
--- NOTE | 2021-07-04 16:14 | PM.PROC.IR.1 ---
Date/Time/Diagnoses Date of procedure: 07/04/21 Time of procedure: 16:14 Pre-procedure diagnosis: 1. FORAMINAL STENOSIS WITH LE SYMPTOMS Post-procedure diagnosis: same Procedure Notes Procedure: 1. FLUOROSCOPICALLY GUIDED CONTRAST CONTROLLED TRANSFORAMINAL EPIDURAL STEROID INJECTION - LEFT L3/4 TFESI Indications: Lynn is referred by Dr. Fernandez for treatment of Foraminal Stenosis with left LE Symptoms Physician: Denis Maurer Total Fluoroscopy time (seconds): 8 Total sedation minutes: 11 Complications: none Procedure in detail & Post-procedure care: FINDINGS Foraminal Nerve Root Compression secondary to disc disease and facet hypertrophy DESCRIPTION OF PROCEDURE Following review of allergy and review of potential side effects and complications, including, but not necessarily limited to, infection, allergic reaction, local tissue breakdown, stroke, temporary or permanent nerve injury, paralysis, and possible , the patient indicated that the patient understood and agreed to proceed. An informed consent document was signed by the patient, witnessed by a nurse, and placed in the patient's chart. Additionally, other treatment options including medications, modalities, and physical therapy were reviewed with the patient. After review of previous anaesthesic history and IV conscious sedation the patient was deemed safe to proceed with today?s procedure with IV conscious sedation as ASA class II designation. Safety time-out was performed to confirm patient ID, procedure to be performed and site of procedure. IV sedation was accomplished with a combination of 2mg of Versed was administered by the RN after DO order, titrated to patient comfort during the course of the procedure while the patient remained responsive to all verbal commands In the prone position following sterile prep and drape of the lumbar region, the left L3/4 posterior neuroforamen was identified fluoroscopically. The skin was anesthetized via a 25-gauge 1.5-inch needle with 1% lidocaine solution. At this point, a 25-gauge 3.5-inch spinal needle was atraumatically introduced and advanced under fluoroscopic guidance through the posterior left L3/4 neuroforamen to approximately the anterior aspect of the canal. Depth was confirmed on lateral view. Following negative aspiration, injection of approximately 1.5 cc of Isovue 200 under live fluoroscopy in the AP view confirmed excellent flow along the nerve root, into the epidural space without vascular or intrathecal uptake observed Radiological data, including multiple fluoroscopic views of the lumbosacral spine, reveal a spinal needle at the left L3/4 posterior neuroforamen. Subsequent views show flow of contrast material flowing superiorly and inferiorly along the nerve root confirming epidural flow. Subsequently, a test dose of 1.5cc of 1% lidocaine solution was administered and patient was observed for two minutes for signs or symptoms of complications, including abdominal pain, shortness of breath, bilateral upper or lower extremity weakness, nausea and vomiting, prior to steroid injection. At this point, a total of 3cc or 20mg of dexamethasone and 6mg betamethasone was injected without incident. The patient tolerated the procedure well without signs or symptoms of complications prior to transfer to the recovery area continued monitoring without incident. The patient was then transferred to the recovery area where they were observed for an appropriate time after the injection. The patient reported a VAS score of 7 prior to the procedure and a post-procedure VAS of 0. POST OP INSTRUCTIONS The patient was provided a Pain Log to continue to record their response to the target-specific procedure prior to follow-up visit with their referring physician. Additionally, specific post-injection care instructions and a contact number to our office were provided if concerns arise regarding possible complications associated with the procedure are suspected.
[2021-07-04 16:15] VITALS: BP 92/58; PULSE 71; RESP 18; O2SAT 99
[2021-07-04 16:20] VITALS: BP 100/58; PULSE 66; RESP 17; O2SAT 98
== END 2021-07-04 16:30 | disposition home or self-care (01) ==
LOC: RAD 15:32
PROVIDERS: PCP Internal Medicine; Referring Provider Physical Medicine & Rehabilitation; Visit Provider Physical Medicine & Rehabilitation
DX: M48.061 Spinal stenosis, lumbar region without neurogenic claudication; M51.16 Intervertebral disc disorders with radiculopathy, lumbar region
CPT/HCPCS: 64483; 99152; J0702; J1100; J2250; J3010

== ENCOUNTER → 2021-08-01 08:49 | Outpatient (CLI) | payer MEDICARE, OTHER, SELFPAY ==
[2021-08-01 09:57] LABS: Alanine Aminotransferase 16 IU/L (<35); Albumin 4.1 g/dL (3.5-5.0); Albumin Globulin Ratio 1.5 (1.0-2.8); Alkaline Phosphatase 50 U/L (38-126); Aspartate Aminotransferase 28 IU/L (14-36); BUN Creatinine Ratio 21.1 (6-22); Bilirubin Total 0.3 mg/dL (0.2-1.3); Blood Urea Nitrogen 15 mg/dL (7-17); Calcium 9.1 mg/dL (8.4-10.2); Carbon Dioxide 29 mmol/L (22-32); Chloride 101 mmol/L (98-107); Estimated Glomerular Filt Rate > 60.0 mL/min (>60); Globulin 2.8 g/dL (1.7-4.1); Glucose 96 mg/dL (80-110); HEMOLYSIS < 15 (0-50); Potassium 3.6 mmol/L (3.4-5.1); Sodium 136 mmol/L (137-145); Total Protein 6.9 g/dL (6.3-8.2)
== END ==
PROVIDERS: PCP Internal Medicine; Referring Provider Internal Medicine; Visit Provider Internal Medicine
DX: R10.84 Generalized abdominal pain (principal)
CPT/HCPCS: 36415; 80053

== ENCOUNTER → 2021-08-02 12:58 | Outpatient (CLI) | payer MEDICARE, OTHER, SELFPAY ==
--- NOTE | 2021-08-02 13:00 | DI.CT.S_ITS ---
PROCEDURE: CT ABDOMEN PELVIS W CON INDICATIONS: Generalized abdominal pain TECHNIQUE: After the administration of oral and intravenous contrast, axial sections were acquired from the lung bases to the pubic symphysis. Coronal and sagittal reformats were performed. For radiation dose reduction, the following was used: automated exposure control, adjustment of mA and/or kV according to patient size. COMPARISON:[facility], CT, ABDOMEN/PELVIS WITH CONTRAST, 10/23/2011, 14:35. FINDINGS: Image quality: Excellent. Lung bases: Unremarkable. Heart: No significant findings. ABDOMEN: Liver: Unremarkable. Gallbladder: Unremarkable. Biliary ducts: Unremarkable. Pancreas: Unremarkable. Spleen: Unremarkable. Adrenal Glands: Unremarkable. Kidneys and Ureters: Unremarkable. Stomach and Bowel: Extensive sigmoid diverticulosis without evidence of diverticulitis. Moderate fecal load. Peritoneum: No abnormal intraperitoneal fluid. No free air. Ventral Wall: No hernia. Abdominal Nodes: No retroperitoneal or mesenteric adenopathy by size criteria. Vessels: Aorta and inferior vena cava are normal in size. PELVIS: Pelvic Organs: Unremarkable. Bladder: Unremarkable. Pelvic Nodes: No enlarged lymph nodes. Miscellaneous: No inguinal hernias are seen. Bones: Diffuse lumbar degenerative change. Mild scoliotic curvature. Mild multilevel canal stenosis. IMPRESSION: 1. No evidence acute abdominal process. 2. Extensive sigmoid diverticulosis. 3. Moderate fecal debris. Dictated by: Orlando Coffey M.D. on 08/02/2021 at 15:47 Approved by: Orlando Coffey M.D. on 08/02/2021 at 15:51
== END ==
PROVIDERS: PCP Internal Medicine; Referring Provider Internal Medicine; Visit Provider Internal Medicine
DX: R10.84 Generalized abdominal pain (principal); K57.30 Diverticulosis of large intestine without perforation or abscess without bleeding
CPT/HCPCS: 74177; Q9967

== ENCOUNTER → 2022-07-09 08:33 | Outpatient (CLI) | payer MEDICARE, OTHER, SELFPAY ==
--- NOTE | 2022-07-09 | DI.MG.S_ITS ---
BILATERAL DIGITAL SCREENING MAMMOGRAM 3D/2D WITH CAD: 07/09/2022 CLINICAL: Routine screening. Comparison is made to exams dated: 05/23/2020 mammogram, 11/03/2018 mammogram, and 10/14/2017 mammogram - [facility]. There are scattered fibroglandular elements in both breasts. Current study was also evaluated with a Computer Aided Detection (CAD) system. There is a focal asymmetry in the right breast central to the nipple in the retroareolar region. There also is a focal asymmetry in the right breast at 5 o'clock anterior depth. No other significant masses, calcifications, or other findings are seen in either breast. IMPRESSION: INCOMPLETE: NEEDS ADDITIONAL IMAGING EVALUATION The focal asymmetry in the right breast central to the nipple in the retroareolar region is indeterminate. Additional views with possible ultrasound are recommended. The focal asymmetry in the right breast at 5 o'clock anterior depth is indeterminate. Additional views with possible ultrasound are recommended. Based on the Tyrer Cuzick model (a risk assessment model) the patient's lifetime risk is 4.7% and her 10 year risk is 3.8%. According to the ACR, ACS, and NCCN guidelines, an annual breast MRI exam along with mammogram is recommended if the patient's lifetime risk is 20% or greater. This exam was interpreted at Station ID: [id number]. NOTE: For mammograms, a report in lay terms will be sent to the patient. Approximately 15% of breast malignancies will not be visualized mammographically. In the management of a palpable breast mass, a negative mammogram must not discourage biopsy of a clinically suspicious lesion. Electronically Signed By: Russ Monroy M.D., jr/talha:07/09/2022 09:54:28 letter sent: Additional Imaging Needed ACR BI-RADS Category 0: Incomplete 3340F
== END ==
PROVIDERS: PCP Internal Medicine; Referring Provider Internal Medicine; Visit Provider Internal Medicine
DX: Z12.31 Encounter for screening mammogram for malignant neoplasm of breast (principal)
CPT/HCPCS: 77063; 77067

== ENCOUNTER → 2022-10-03 13:32 | Outpatient (CLI) | payer MEDICARE, OTHER, SELFPAY ==
--- NOTE | 2022-10-03 | DI.US.S_ITS ---
LIMITED ULTRASOUND OF RIGHT BREAST: 10/03/2022 CLINICAL: Patient returns today to evaluate two focal asymmetries in the right breast. Comparison is made to exams dated: 10/03/2022 mammogram, 07/09/2022 mammogram, 05/23/2020 mammogram, 11/03/2018 mammogram, 10/14/2017 mammogram, and 09/10/2016 mammogram - [facility]. Ultrasound of the right breast retroareolar was performed. Suazo scale images of the real-time examination were reviewed. No significant abnormalities were seen sonographically in the right breast. Specifically, no finding to correspond to the patient's resolved screening mammographic abnormalities. IMPRESSION: NEGATIVE There is no sonographic correlate to the patient's screening mammography abnormalities and no evidence of malignancy. Return to annual mammogram screening schedule is recommended. Findings and recommendations were conveyed to the patient at time of exam. This exam was interpreted at Station ID: [id number]. Electronically Signed By: Martine vicente/:10/03/2022 14:55:38 letter sent: Normal Exam Ultrasound BI-RADS: 1 Negative
--- NOTE | 2022-10-03 | DI.MG.S_ITS ---
UNILATERAL RIGHT DIGITAL DIAGNOSTIC MAMMOGRAM 3D/2D WITH ADDITIONAL VIEWS: 10/03/2022 CLINICAL: Additional evaluation requested from prior study. Comparison is made to exams dated: 07/09/2022 mammogram, 05/23/2020 mammogram, and 11/03/2018 mammogram - [facility]. There are scattered areas of fibroglandular density in the right breast (category b / 25%-50% glandular tissue). The focal asymmetry in the right breast central to the nipple in the retroareolar region is no longer seen. The focal asymmetry in the right breast at 5 o'clock anterior depth is no longer seen. No other significant masses or calcifications are seen in the breast. IMPRESSION: INCOMPLETE: NEEDS ADDITIONAL IMAGING EVALUATION An ultrasound is recommended to confirm the no longer seen focal asymmetry in the right breast central to the nipple in the retroareolar region. An ultrasound is recommended to confirm the no longer seen focal asymmetry in the right breast at 5 o'clock anterior depth. Focal spot compression may obscure any ductal ectasia or intraductal lesions. Ultrasound of these areas was performed immediately following this exam. Based on the Tyrer Cuzick model (a risk assessment model) the patient's lifetime risk is 4.7% and her 10 year risk is 3.8%. According to the ACR, ACS, and NCCN guidelines, an annual breast MRI exam along with mammogram is recommended if the patient's lifetime risk is 20% or greater. This exam was interpreted at Station ID: [id number]. NOTE: For mammograms, a report in lay terms will be sent to the patient. Approximately 15% of breast malignancies will not be visualized mammographically. In the management of a palpable breast mass, a negative mammogram must not discourage biopsy of a clinically suspicious lesion. Electronically Signed By: Martine vicente/:10/03/2022 14:10:17 ACR BI-RADS Category 0: Incomplete 3340F
== END ==
PROVIDERS: PCP Internal Medicine; Referring Provider Internal Medicine; Visit Provider Internal Medicine
DX: R92.8 Other abnormal and inconclusive findings on diagnostic imaging of breast (principal); N64.89 Other specified disorders of breast
CPT/HCPCS: 76642; 77065; G0279

== ENCOUNTER → 2023-04-25 16:32 | Outpatient (CLI) | payer MEDICARE, OTHER, SELFPAY ==
[2023-04-27 18:41] LABS: SS A Ro Sjogrens Antibody < 0.2 AI (0.0-0.9); SS B La Sjogrens Antibody < 0.2 AI (0.0-0.9)
== END ==
PROVIDERS: PCP Family Medicine; Referring Provider Dermatology; Visit Provider Dermatology
DX: K13.0 Diseases of lips (principal)
CPT/HCPCS: 36415; 86038; 86235

== ENCOUNTER → 2023-07-08 08:06 | Outpatient (CLI) | payer MEDICARE, OTHER, SELFPAY ==
[2023-07-08 09:56] LABS: Add Manual Diff / Slide Review NO; Basophils Absolute Auto 0 /uL (0-100); Basophils Percent Auto 0.8 % (0-2); Eosinophils Absolute Auto 100 /uL (0-450); Eosinophils Percent Auto 3.2 % (2-4); Hematocrit 35.1 % (36-46); Hemoglobin 11.9 g/dL (12.0-16.0); Lymphocytes Absolute Auto 1600 /uL (1100-4500); Lymphocytes Percent Auto 36.6 % (25-40); Mean Corpuscular HGB Conc 33.8 % (30-36); Mean Corpuscular Hemoglobin 30.2 PG (26-34); Mean Corpuscular Volume 89.2 fL (80-100); Monocytes Absolute Auto 400 /uL (0-900); Monocytes Percent Auto 9.4 % (3-14); Neutrophils Absolute Auto 2200 /uL (1500-7000); Platelet Count 234 X10^3/uL (150-400); Red Blood Cell Count 3.94 X10^6/uL (4.0-5.2); White Blood Cell Count 4.4 X10^3/uL (4.5-11.0)
--- NOTE | 2023-07-08 10:11 | DI.RAD.S_ITS ---
Bone Density Report Name: AARON GRIFFITH Age: 73 Sex: Female Ethnicity: White Date of : 1950 Indication: osteopenia; Referring Provider: PEPPER PAK Study: Bone densitometry was performed. Exam Date: July 08, 2023 Accession number: [id number] Bone Density: Region BMD T-score Z-score Classification Femoral Neck (Left) 0.559 -2.6 -0.6 Osteoporosis Total Hip (Left) 0.687 -2.1 -0.3 Osteopenia Femoral Neck (Right) 0.547 -2.7 -0.7 Osteoporosis Total Hip (Right) 0.698 -2.0 -0.3 Osteopenia Total Hip Mean 0.693 -2.1 -0.3 Osteopenia Total Forearm (Left) 0.516 -1.2 1.2 Osteopenia 1/3 Forearm (Left) 0.608 -1.4 1.1 Osteopenia UD Forearm (Left) 0.353 -1.6 0.2 Osteopenia World Health Organization criteria for BMD impression classify patients as: Normal (T-score at or above -1.0), Osteopenia (T-score between -1.0 and -2.5), or Osteoporosis (T-score at or below -2.5). 10-year Fracture Risk: FRAX not reported because: Some T-score for Spine Total or Hip Total or Femoral Neck at or below -2.5 Previous Exams: -- Region Exam Age BMD T-score BMD Change BMD Change Date g/cm2 vs Baseline vs Previous -- Total Hip(Left) 07/08/2023 73 0.687 -2.1 0.027 (4.1%)# 0.027 (4.1%)# 02/22/2021 71 0.660 -2.3 Total Hip(Right) 07/08/2023 73 0.698 -2.0 0.017 (2.4%)# 0.017 (2.4%)# 02/22/2021 71 0.682 -2.1 -- *Denotes significance at 95% confidence level, LSC for Total Hip = 0.027 g/cm2 # Denotes dissimilar scan types or analysis methods Impression: The patient has osteoporosis, based on the Right Femoral Neck T-score. No significant bone loss was observed. Discussion: INCREASED RISK OF FRACTURE. BONE DENSITY IS UNDESIRABLY LOW AT ONE OR MORE SKELETAL SITES, CONSISTENT WITH POSTMENOPAUSAL OSTEOPOROSIS. This patient's lowest T-score meets the World Health Organization's (WHO) criteria for osteoporosis at one or more sites (T-score -2.5 or below). In untreated patients, the risk of osteoporotic fracture increases approximately two-fold for each 1.0 SD decrease in T-score. Low bone density is not the only risk factor for fracture; also consider factors such as patient's age, frailty or poor health, risk of falling, risk of injury, previous osteoporotic fracture, family history of osteoporosis, cigarette smoking, low body weight, etc. Not everyone with low bone mineral density has osteoporosis; osteomalacia and other metabolic bone disorders should also be considered. Patients who have osteoporosis should be evaluated for specific diseases and conditions (secondary causes) that may cause or contribute to bone loss. The [place] [employer]ocr[employer] (AACE) and National Osteoporosis Foundation (NOF) recommend pharmacologic intervention for all postmenopausal women whose T-score is in this range. The patient should follow a healthful lifestyle (good nutrition with adequate calcium and vitamin D, and appropriate weight-bearing exercise). Follow-Up: Consider a repeat BMD and Vertebral Fracture Assessment (VFA) exam in 2 years or sooner if medically necessary, to reassess this patient's status. Reported by: JOE NOLEN M.D. on 07/08/2023 11:00:00 AM.
[2023-07-08 10:28] LABS: Alanine Aminotransferase 18 IU/L (<35); Albumin 3.6 g/dL (3.5-5.0); Albumin Globulin Ratio 1.4 (1.0-2.8); Alkaline Phosphatase 48 U/L (38-126); Aspartate Aminotransferase 27 IU/L (14-36); BUN Creatinine Ratio 24.1 (6-22); Bilirubin Total 0.5 mg/dL (0.2-1.3); Blood Urea Nitrogen 19 mg/dL (7-17); Calcium 8.6 mg/dL (8.4-10.2); Carbon Dioxide 29 mmol/L (22-32); Chloride 98 mmol/L (98-107); Cholesterol 271 mg/dL (140-199); Estimated Glomerular Filt Rate > 60 mL/min (>60); Globulin 2.6 g/dL (1.7-4.1); Glucose 93 mg/dL (80-110); HDL Cholesterol 89 mg/dL (40-60); HEMOLYSIS < 15 (0-50); LDL Cholesterol Calculated 170 mg/dL (<100); Potassium 4.1 mmol/L (3.4-5.1); Sodium 130 mmol/L (137-145); Total Protein 6.2 g/dL (6.3-8.2); Triglycerides 58 mg/dL (35-150)
[2023-07-08 10:55] LABS: TSH w/ Reflex to FT4 1.66 uIU/mL (0.47-4.68)
== END ==
PROVIDERS: PCP Family Medicine; Referring Provider Family Medicine; Visit Provider Family Medicine
DX: K21.9 Gastro-esophageal reflux disease without esophagitis (principal); M81.0 Age-related osteoporosis without current pathological fracture; K57.90 Diverticulosis of intestine, part unspecified, without perforation or abscess without bleeding; Z78.0 Asymptomatic menopausal state; Z90.710 Acquired absence of both cervix and uterus; Z13.6 Encounter for screening for cardiovascular disorders; R68.2 Dry mouth, unspecified
CPT/HCPCS: 36415; 77080; 77081; 80053; 80061; 84443; 85025

== ENCOUNTER → 2023-07-29 07:59 | Outpatient (CLI) | payer MEDICARE, OTHER, SELFPAY ==
[2023-07-29 09:40] LABS: Iron 103 ug/dL (37-170)
[2023-07-29 10:52] LABS: Vitamin B12 > 1000 pg/mL (239-931)
== END ==
PROVIDERS: PCP Family Medicine; Referring Provider Family Medicine; Visit Provider Family Medicine
DX: E53.8 Deficiency of other specified B group vitamins (principal); E55.9 Vitamin D deficiency, unspecified
CPT/HCPCS: 36415; 82607; 83540

== ENCOUNTER → 2023-08-27 11:11 | Outpatient (CLI) | payer MEDICARE, OTHER, SELFPAY ==
--- NOTE | 2023-08-27 11:13 | DI.RAD.S_ITS ---
PROCEDURE: XR HIP W PEL IF DONE LT 2V INDICATIONS: L hip pain TECHNIQUE: AP pelvis with lateral view(s) of the left hip(s). COMPARISON: None. FINDINGS: Bones: No fractures or dislocations. Mild degenerative changes of the bilateral hips with mild joint space narrowing and marginal spurring. Pelvic ring appears intact. No suspicious bony lesions. Degenerative changes of the visualized lower lumbar spine and pubic symphysis. Soft tissues: The visualized bowel gas pattern is normal. No suspicious soft tissue calcifications. 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 Dictated by: Gilbetr Villafuerte M.D. on 08/27/2023 at 13:42 Approved by: Gilbert Villafuerte M.D. on 08/27/2023 at 13:43
== END ==
PROVIDERS: PCP Family Medicine; Referring Provider Family Medicine; Visit Provider Family Medicine
DX: M25.552 Pain in left hip (principal)
CPT/HCPCS: 73502

== ENCOUNTER → 2023-09-16 08:26 | Outpatient (CLI) | payer MEDICARE, OTHER, SELFPAY ==
--- NOTE | 2023-09-16 | DI.MG.S_ITS ---
BILATERAL DIGITAL SCREENING MAMMOGRAM 3D/2D WITH CAD: 09/16/2023 CLINICAL: Routine screening. Comparison is made to exams dated: 07/09/2022 mammogram, 05/23/2020 mammogram, and 11/03/2018 mammogram - [facility]. There are scattered areas of fibroglandular density in both breasts (category b / 25%-50% glandular tissue). Current study was also evaluated with a Computer Aided Detection (CAD) system. No significant masses, calcifications, or other findings are seen in either breast. IMPRESSION: NEGATIVE There is no mammographic evidence of malignancy. A 1 year screening mammogram is recommended. Based on the Tyrer Cuzick model (a risk assessment model) the patient's lifetime risk is 4.4% and her 10 year risk is 3.9%. According to the ACR, ACS, and NCCN guidelines, an annual breast MRI exam along with mammogram is recommended if the patient's lifetime risk is 20% or greater. This exam was interpreted at Station ID: [id number]. NOTE: For mammograms, a report in lay terms will be sent to the patient. Approximately 15% of breast malignancies will not be visualized mammographically. In the management of a palpable breast mass, a negative mammogram must not discourage biopsy of a clinically suspicious lesion. Electronically Signed By: Candy montanez/talha:09/16/2023 09:54:55 letter sent: Normal Exam ACR BI-RADS Category 1: Negative [id number]
== END ==
PROVIDERS: PCP Family Medicine; Referring Provider Family Medicine; Visit Provider Family Medicine
DX: Z12.31 Encounter for screening mammogram for malignant neoplasm of breast (principal)
CPT/HCPCS: 77063; 77067

== ENCOUNTER → 2023-10-14 07:36 | Outpatient (CLI) | payer MEDICARE, OTHER, SELFPAY ==
--- NOTE | 2023-10-14 07:40 | DI.RAD.S_ITS ---
PROCEDURE: XR CERVICAL SPINE 4V OR 5V INDICATIONS: NECK PAIN TECHNIQUE: 5 views of the cervical spine acquired. COMPARISON: [facility], CR, XR CERVICAL SPINE 4V OR 5V, 03/27/2021, 7:31. FINDINGS: Bones: There is grade 1 anterolisthesis of C4 on C5. No fractures or dislocations to the C7 level. Oblique images demonstrate no bony foraminal stenoses. Degenerative disc disease, moderate at C5-C6 and C6-C7. Bilateral facet arthropathy, most pronounced at C3-C4 and C4-C5. Oblique views moderate foraminal canal at C3-C4 and C4-C5 on the left, and mild foraminal stenoses at multiple other levels. Soft tissues: No prevertebral soft tissue swelling. IMPRESSION: 1. Multilevel degenerative disc and facet disease in cervical spine. 2. Moderate foraminal stenosis at C3-C4 and C4-C5 on the left. Dictated by: Gavi Weiss M.D. on 10/14/2023 at 10:14 Approved by: Gavi Weiss M.D. on 10/14/2023 at 10:19
--- NOTE | 2023-10-14 07:40 | DI.RAD.S_ITS ---
PROCEDURE: XR LUMBAR SPINE MIN 4V INDICATIONS: BACK PAIN TECHNIQUE: 5 views of the lumbar spine were acquired, including bilateral oblique views. COMPARISON: MR, MR LUMBAR SPINE WO CON, 09/24/2019, 12:58. [facility], CR, XR LUMBAR SPINE MIN 4V, 12/26/2020, 9:28. FINDINGS: Bones: 5 nonrib-bearing vertebrae are present. There is moderate levoscoliosis, otherwise normal bony alignment. No vertebral body compression fractures. No suspicious bony lesions. Degenerative disc disease, severe at L2-L3 and L3-L4, moderate at L4-L5 and L5-S1. Bilateral facet arthropathy, most pronounced and severe at L3-L4, L4-L5 and L5-S1. Soft tissues: Overlying bowel gas pattern is normal. No suspicious soft tissue calcifications. Oblique images: No pars defects. IMPRESSION: 1. Moderate levoscoliosis. 2. Severe degenerative disc and facet disease in lumbar spine. Dictated by: Gavi Weiss M.D. on 10/14/2023 at 10:19 Approved by: Gavi Weiss M.D. on 10/14/2023 at 10:21
== END ==
PROVIDERS: PCP Family Medicine; Referring Provider Physical Medicine & Rehabilitation; Visit Provider Physical Medicine & Rehabilitation
DX: M47.26 Other spondylosis with radiculopathy, lumbar region (principal); M47.27 Other spondylosis with radiculopathy, lumbosacral region; M51.16 Intervertebral disc disorders with radiculopathy, lumbar region; M51.17 Intervertebral disc disorders with radiculopathy, lumbosacral region; M50.122 Cervical disc disorder at C5-C6 level with radiculopathy; M47.22 Other spondylosis with radiculopathy, cervical region; M48.02 Spinal stenosis, cervical region; M43.12 Spondylolisthesis, cervical region; M41.80 Other forms of scoliosis, site unspecified; M48.9 Spondylopathy, unspecified; M53.3 Sacrococcygeal disorders, not elsewhere classified; K21.9 Gastro-esophageal reflux disease without esophagitis
CPT/HCPCS: 72050; 72110; 99214

== ENCOUNTER 2023-10-31 14:29 | Outpatient (CLI) | payer MEDICARE, OTHER, SELFPAY ==
[2023-10-31] VITALS (8 sets, daily range): BP systolic 112–131; BP diastolic 54–62; PULSE 77–93; RESP 10–20; TEMP 36.1; O2SAT 96–100
--- NOTE | 2023-10-31 15:00 | DI.RAD.S_ITS ---
PROCEDURE: PAIN L/SI FACET INJ/BLK 1STL INDICATIONS: SPONDYLOSIS COMPARISON: [facility], , PAIN L/SI FACET INJ/BLK 1STL, 04/06/2021, 15:41. FINDINGS: Fluoroscopic spot filming was performed to verify placement of spinal needles at the left L3, L4 and L5 level(s), as labeled on the films. Appropriate location(s) of the needle tip(s) was confirmed by injection of iodinated contrast. IMPRESSION: Needle placement at left L3, L4 and L5 levels with contrast injection. Dictated by: Candy Lauren M.D. on 10/31/2023 at 18:41 Approved by: Candy Lauren M.D. on 10/31/2023 at 18:42
[2023-10-31] MEDS: MIDAZOLAM 2 MG/2 ML VIAL IV (16:05)
[2023-10-31] MEDS: BUPIVACAINE 0.5% (PF) 10 ML VIAL 2 ML INJ (16:11)
[2023-10-31] MEDS: iopamidoL 15 ML VIAL 3 ML INJ (16:12)
--- NOTE | 2023-10-31 16:24 | P.PCN_ITS ---
Date/Time/Diagnoses Date of procedure: 10/31/23 Time of procedure: 16:24 Pre-procedure diagnosis: 1. FACET ARTHROPATHY Post-procedure diagnosis: same Procedure Notes Procedure: 1. Left L3, L4 and L5 MB BLOCKS Indications: Lynn is referred by Dr. Wright for treatment of Left Axial LBP. Physician: Denis Maurer Total Fluoroscopy time (seconds): 10 Total sedation minutes: 10 Complications: none Procedure in detail & Post-procedure care: DESCRIPTION OF PROCEDURE Fluoroscopically guided, contrast-controlled left L3, L4 and L5 medial branch blocks with 0.5cc of 0.5% Marcaine. Following review of allergy and review of potential side effects and complications, including, but not necessarily limited to, infection, allergic reaction, local tissue breakdown, nerve injury, paralysis, stroke and possible , the patient indicated that the patient understood and agreed to proceed. An informed consent document was signed by the patient, witnessed by a nurse, and placed in the patient's chart. After review of previous anaesthesic history and IV conscious sedation the patient was deemed safe to proceed with today?s procedure with IV conscious sedation as ASA class II designation. Safety time-out was performed to confirm patient ID, procedure to be performed and site of procedure. IV sedation was accomplished with a combination of 2mg of Versed was administered by the RN after DO order, titrated to patient comfort during the course of the procedure while the patient remained responsive to all verbal commands In the prone position, following sterile prep and drape of the lumbar region, the left L3, L4 and L5 anatomical location of the medial branch of the dorsal ramus was identified fluoroscopically. Subsequently an anesthetic skin wheal using 1% lidocaine solution was initiated at each of the anatomical spots. Subsequently then a 22-gauge 3.5-inch spinal needle was atraumatically introduced and advanced under fluoroscopic guidance at each of the corresponding sites at the left L3, L4 and L5 MB. After negative aspiration, 0.2 cc of Isovue 200 was injected, confirming placement without vascular or intrathecal uptake. Subsequently then 0.5cc of 0.5% Marcaine solution was injected at each of the corresponding sites at the left L3, L4 and L5 medial branch locations. The patient tolerated the procedure well without signs or symptoms of complications. The procedure tolerated the procedure well without signs or symptoms of complications prior to transfer to the recovery area continued monitoring without incident. Post-procedure, the patient was monitored initiating provocative activities to measure the amount of relief from block of the facetogenic pain. The patient reported a VAS of 7 prior to the procedure and a post-procedure VAS of 1. It has been a pleasure to assist in the diagnostic and therapeutic care of your patient. POST OP INSTRUCTIONS The patient was provided with a Pain Log to complete over the next several hours and subsequent days prior to the patient's follow up with the ordering physician. If the patient has warehouse sorter relief to the solution applied, then they may be a candidate for medial branch rhizotomy. The patient is aware, was provided, once again, with a Pain Log and will follow up with the referring physician for review and clinical correlation.
== END 2023-10-31 16:39 | disposition home or self-care (01) ==
PROVIDERS: PCP Family Medicine; Referring Provider Physical Medicine & Rehabilitation; Visit Provider Physical Medicine & Rehabilitation
DX: M47.816 Spondylosis without myelopathy or radiculopathy, lumbar region (principal)
CPT/HCPCS: 64493; 64494; 99152; J2250

== ENCOUNTER → 2023-11-07 16:24 | Outpatient (CLI) | payer MEDICARE, OTHER, SELFPAY ==
[2023-11-07 17:08] LABS: Estimated Glomerular Filt Rate > 60 mL/min (>60)
== END ==
PROVIDERS: PCP Family Medicine; Referring Provider Radiology Diagnostic Radiology; Visit Provider Radiology Diagnostic Radiology
DX: Z87.19 Personal history of other diseases of the digestive system (principal)
CPT/HCPCS: 36415; 82565

== ENCOUNTER → 2023-11-08 12:57 | Outpatient (CLI) | payer MEDICARE, OTHER, SELFPAY ==
--- NOTE | 2023-11-08 | DI.CT.S_ITS ---
PROCEDURE: CT ABDOMEN PELVIS W CON INDICATIONS: HX OF DIVERTICULITIS OF COLON TECHNIQUE: After the administration of oral and intravenous contrast, axial sections were acquired from the lung bases to the pubic symphysis. Coronal and sagittal reformats were performed. For radiation dose reduction, the following was used: automated exposure control, adjustment of mA and/or kV according to patient size. COMPARISON:[facility], CT, CT ABDOMEN PELVIS W CON, 08/02/2021, 14:05. FINDINGS: Image quality: Excellent. Lung bases: Unremarkable. Heart: No significant findings. ABDOMEN: Liver: No solid mass. Gallbladder: No radiopaque gallstones or wall thickening. Biliary ducts: No biliary dilation. Pancreas: No ductal dilation. Spleen: Size is within normal limits. Adrenal Glands: No adrenal nodules. Kidneys and Ureters: No hydronephrosis. No solid mass. No complex renal cystic lesion which requires follow up. Stomach and Bowel: Extensive sigmoid diverticulosis without evidence of diverticulitis. Question narrowing at the rectosigmoid junction. Cannot exclude lesion. There are associated prominent pericolonic lymph nodes, for instance a 10 mm lymph node on image 56 of series 2. Peritoneum: No abnormal intraperitoneal fluid. No free air. Ventral Wall: No hernia. Abdominal Nodes: No retroperitoneal or mesenteric adenopathy by size criteria. Vessels: Aorta and inferior vena cava are normal in size. PELVIS: Pelvic Organs: Surgically absent uterus. No adnexal masses.. Bladder: Unremarkable. Pelvic Nodes: No enlarged lymph nodes. Miscellaneous: No inguinal hernias are seen. Bones: Lumbar degenerative change. No lytic or blastic bony lesions. No compression fractures. IMPRESSION: 1. Extensive sigmoid diverticulosis. No evidence of acute diverticulitis. 2. Question of focal narrowed segment at the rectosigmoid junction. Cannot exclude lesion. Additionally, there are prominent perirectal lymph nodes. They may be reactive lymph nodes. 3. Large diffuse fecal load. Comment: Recommend direct visualization utilizing colonoscopy if this has not been done in the recent past. Dictated by: Orlando Coffey M.D. on 11/08/2023 at 14:30 Approved by: Orlando Coffey M.D. on 11/08/2023 at 14:37
== END ==
PROVIDERS: PCP Family Medicine; Referring Provider Internal Medicine Gastroenterology; Visit Provider Internal Medicine Gastroenterology
DX: R10.32 Left lower quadrant pain (principal); K57.30 Diverticulosis of large intestine without perforation or abscess without bleeding; Z87.19 Personal history of other diseases of the digestive system
CPT/HCPCS: 74177; Q9967

== ENCOUNTER → 2023-11-29 09:38 | Outpatient (CLI) | payer MEDICARE, OTHER, SELFPAY ==
[2023-11-29 11:00] LABS: Alanine Aminotransferase 18 IU/L (<35); Albumin 3.9 g/dL (3.5-5.0); Albumin Globulin Ratio 1.4 (1.0-2.8); Alkaline Phosphatase 45 U/L (38-126); Aspartate Aminotransferase 28 IU/L (14-36); Bilirubin Total 0.6 mg/dL (0.2-1.3); Blood Urea Nitrogen 20 mg/dL (7-17); Calcium 9.4 mg/dL (8.4-10.2); Carbon Dioxide 30 mmol/L (22-32); Chloride 98 mmol/L (98-107); Estimated Glomerular Filt Rate > 60 mL/min (>60); Globulin 2.7 g/dL (1.7-4.1); Glucose 92 mg/dL (80-110); HEMOLYSIS < 15 (0-50); Sodium 134 mmol/L (137-145); Total Protein 6.6 g/dL (6.3-8.2)
== END ==
PROVIDERS: PCP Family Medicine; Referring Provider Internal Medicine Gastroenterology; Visit Provider Internal Medicine Gastroenterology
DX: R10.32 Left lower quadrant pain (principal); Z87.19 Personal history of other diseases of the digestive system
CPT/HCPCS: 36415; 80053

== ENCOUNTER 2024-01-14 13:30 | Outpatient (CLI) | payer MEDICARE, OTHER, SELFPAY ==
[2024-01-14] VITALS (8 sets, daily range): BP systolic 104–146; BP diastolic 55–67; PULSE 72–84; RESP 9–18; TEMP 36.2; O2SAT 97–100
--- NOTE | 2024-01-14 14:00 | DI.RAD.S_ITS ---
PROCEDURE: PAIN L/SI FACET INJ/BLK 1STL INDICATIONS: SPONDYLOSIS COMPARISON: [facility], , PAIN L/SI FACET INJ/BLK 1STL, 10/31/2023, 17:09. FINDINGS: Fluoroscopic spot filming was performed to verify placement of spinal needles at the L3, L4 and L5 level(s), as labeled on the films. Appropriate location(s) of the needle tip(s) was confirmed by injection of iodinated contrast. IMPRESSION: Fluoro guidance was provided intraoperatively for left L3, L4 and L5 medial branch block performed by ordering physician. Dictated by: Rudolph Riddle M.D. on 01/14/2024 at 17:56 Approved by: Rudolph Riddle M.D. on 01/14/2024 at 17:57
[2024-01-14] MEDS: MIDAZOLAM 2 MG/2 ML VIAL IV (14:37)
[2024-01-14] MEDS: iopamidoL 15 ML VIAL 3 ML INJ (14:44)
[2024-01-14] MEDS: LIDOCAINE 2% INJ SDV 5ML 5 ML INJ (14:44)
--- NOTE | 2024-01-14 14:50 | PM.PROC.IR.1 ---
Date/Time/Diagnoses Date of procedure: 01/14/24 Time of procedure: 14:50 Pre-procedure diagnosis: 1. FACET ARTHROPATHY Post-procedure diagnosis: same Procedure Notes Procedure: 1. LEFT L3, L4 AND L5 DIAGNOSTIC MB BLOCKS Indications: Lynn is referred by Dr. Wright for treatment of Left Axial LBP. Physician: Denis Maurer Total Fluoroscopy time (seconds): 5 Total sedation minutes: 10 Complications: none Procedure in detail & Post-procedure care: DESCRIPTION OF PROCEDURE Fluoroscopically guided, contrast-controlled left L3, L4 and L5 medial branch blocks with 0.5cc of 2% Lidocaine. Following review of allergy and review of potential side effects and complications, including, but not necessarily limited to, infection, allergic reaction, local tissue breakdown, nerve injury, paralysis, stroke and possible , the patient indicated that the patient understood and agreed to proceed. An informed consent document was signed by the patient, witnessed by a nurse, and placed in the patient's chart. After review of previous anaesthesic history and IV conscious sedation the patient was deemed safe to proceed with today's procedure with IV conscious sedation as ASA class II designation. Safety time-out was performed to confirm patient ID, procedure to be performed and site of procedure. IV sedation was accomplished with a combination of 2mg of Versed was administered by the RN after DO order, titrated to patient comfort during the course of the procedure while the patient remained responsive to all verbal commands In the prone position, following sterile prep and drape of the lumbar region, the left L3, L4 and L5 anatomical location of the medial branch of the dorsal ramus was identified fluoroscopically. Subsequently an anesthetic skin wheal using 1% lidocaine solution was initiated at each of the anatomical spots. Subsequently then a 22-gauge 3.5-inch spinal needle was atraumatically introduced and advanced under fluoroscopic guidance at each of the corresponding sites at the left L3, L4 and L5 MB. After negative aspiration, 0.2cc of Isovue 200 was injected, confirming placement without vascular or intrathecal uptake. Subsequently then 0.5cc of 2% Lidocaine solution was injected at each of the corresponding sites at the left L3, L4 and L5 medial branch locations. The patient tolerated the procedure well without signs or symptoms of complications prior to transfer to the recovery area continued monitoring without incident. Post-procedure, the patient was monitored initiating provocative activities to measure the amount of relief from block of the facetogenic pain. The patient reported a VAS of 7 prior to the procedure and a post-procedure VAS of 1. It has been a pleasure to assist in the diagnostic and therapeutic care of your patient. POST OP INSTRUCTIONS The patient was provided with a Pain Log to complete over the next several hours and subsequent days prior to the patient's follow up with the ordering physician. If the patient has forestry biology specialist relief to the solution applied, then they may be a candidate for medial branch rhizotomy. The patient is aware, was provided, once again, with a Pain Log and will follow up with the referring physician for review and clinical correlation
--- NOTE | 2024-01-16 14:25 | PC.NURSE ---
Patient contacted and stated that she is doing fine. Patient reminded to call the clinic with the phone number that is on her green discharge paperwork if anything changes.
== END 2024-01-14 15:11 | disposition home or self-care (01) ==
LOC: RAD 13:31
PROVIDERS: PCP Family Medicine; Referring Provider Physical Medicine & Rehabilitation; Visit Provider Physical Medicine & Rehabilitation
DX: M47.816 Spondylosis without myelopathy or radiculopathy, lumbar region (principal)
CPT/HCPCS: 64493; 64494; 99152; J2250

== ENCOUNTER 2024-03-17 07:24 | Outpatient (CLI) | payer MEDICARE, OTHER, SELFPAY ==
[2024-03-17] VITALS (10 sets, daily range): BP systolic 111–156; BP diastolic 56–96; PULSE 73–88; RESP 11–20; TEMP 36.1; O2SAT 97–100
--- NOTE | 2024-03-17 08:00 | DI.RAD.S_ITS ---
PROCEDURE: PAIN L/S MED/LAT N RFA INDICATIONS: FACET ARTHOPATHY COMPARISON: CR, XR LUMBAR SPINE MIN 4V, 10/14/2023, 7:43. FINDINGS: Fluoroscopic spot filming was performed to verify placement of spinal needles at the L3, L4 and L5 level(s), as labeled on the films. Appropriate location(s) of the needle tip(s) was confirmed by injection of iodinated contrast. IMPRESSION: Fluoroscopy for pain management. Dictated by: Gavi Weiss M.D. on 03/17/2024 at 12:45 Approved by: Gavi Weiss M.D. on 03/17/2024 at 12:45
[2024-03-17] MEDS: ONDANSETRON 4 MG/2 ML INJ IV (08:16)
[2024-03-17] MEDS: fentaNYL 100 MCG/2 ML INJ 25 MCG IV (08:16)
[2024-03-17] MEDS: MIDAZOLAM 2 MG/2 ML VIAL 1 MG IV ×2 (08:16→08:24)
[2024-03-17] MEDS: BUPIVACAINE 0.5% (PF) 10 ML VIAL 5 ML INJ (08:30)
[2024-03-17] MEDS: LIDOCAINE 1% 20 ML 5 ML INJ (08:30)
--- NOTE | 2024-03-17 08:47 | P.PCN_ITS ---
Date/Time/Diagnoses Date of procedure: 03/17/24 Time of procedure: 08:47 Pre-procedure diagnosis: 1. RECALCITRANT FACET ARTHROPATHY Post-procedure diagnosis: same Procedure Notes Procedure: 1. LEFT L3, L4 AND L5 MEDIAL BRANCH RADIOFREQUENCY NEUROTOMY Indications: Lynn is referred by Dr. Wright for treatment of facet arthropathy. Physician: Denis Maurer Total Fluoroscopy time (seconds): 12 Total sedation minutes: 24 Complications: none Procedure in detail & Post-procedure care: DESCRIPTION OF PROCEDURE Left L3, L4 and L5 medial branch radiofrequency neurotomy The patient is well known to this clinic having undergone previous facet injections with good but temporary relief. The patient has experienced appropriate, concordant relief with previous facet and median branch blocks but the patient's pain has been recalcitrant to further conservative measures. Therefore, based upon the patient's relief and persistent symptoms, the patient is considered an appropriate candidate for facet rhizotomy. All of the patient's questions regarding the risks versus benefits of the procedure, including, but not limited to, bleeding, infection, temporary as well as lasting nerve injury, paralysis, stroke, and , as well treatment alternatives were answered to satisfaction. After obtaining informed consent, denial of pertinent drug allergies, as well as being made aware of the potential risks of bleeding, infection, spinal cord trauma, paralysis, temporary and permanent nerve damage, seizure, stroke, and possible , the patient was brought to the fluoroscopy suite and positioned prone on the fluoroscopy table. After review of previous anaesthesic history and IV conscious sedation the patient was deemed safe to proceed with today's procedure with IV conscious sedation as ASA class II designation. Safety time-out was performed to confirm patient ID, procedure to be performed and site of procedure. IV sedation was accomplished with a combination of 2mg of Versed and 25mcg of Fentanyl administered by the RN after DO order, titrated to patient comfort during the course of the procedure while the patient remained responsive to all verbal commands. The lumbar region was prepped in usual sterile fashion and covered with a fenestrated drape in the usual sterile fashion. Appropriate monitors applied including pulse oximeter, pulse, and blood pressure for regular monitoring throughout the procedure. After local infiltration using 1% lidocaine, under fluoroscopic guidance, a 10- cm RF insulated needle with a 10-mm active tip was positioned parallel to the junction of the left the superior articulating process where the L5 medial branch resides. Needle placement was confirmed with motor stimulation of .5v on the left which produced local stimulation without radicular component. The stimulation was then increased to 2v with, once again, only local multifidus stimulation without radicular component. The needle was then removed and the identical procedure was performed along the length of the left L4 medial branch with motor stimulation at .7v on the left. The identical procedure was once again performed along the length of the left L3 and medial branch with motor stimulation of .5v on the right. The medial branches were then anesthetised with 0.5% marcaine. This was then followed by two discreet lesions performed at 80 degrees Celsius for 90 seconds each. The patient tolerated the procedure well without signs or symptoms of complications prior to transfer to the recovery area continued monitoring without incident. The patient was then transferred to the recovery area where they were observed for an appropriate period of time after the injection. The patient reported a VAS score of 7 prior to the procedure and a post-procedure VAS of 0. POST OP INSTRUCTIONS The patient was provided a Pain Log to continue to record the patient's response to the target-specific procedure prior to the patient's follow-up visit with the referring physician. Additionally, specific post-injection care instructions and a contact number to our office were provided if concerns arise regarding possible complications associated with the procedure are suspected.
--- NOTE | 2024-03-17 09:55 | PC.NURSE ---
Patient's allergies verified during the time out. Patient stated her allergy to fentanyl is history of nausea and vomiting. Dr. Maurer aware. Patient pre treated with 4mg Ondansetron per Dr. Maurer's verbal order.
== END 2024-03-17 09:00 | disposition home or self-care (01) ==
LOC: RAD 07:25
PROVIDERS: PCP Family Medicine; Referring Provider Physical Medicine & Rehabilitation; Visit Provider Physical Medicine & Rehabilitation
DX: M47.816 Spondylosis without myelopathy or radiculopathy, lumbar region (principal)
CPT/HCPCS: 64635; 64636; 99152; 99153; J2250; J2405; J3010

== ENCOUNTER → 2024-03-31 16:35 | Outpatient (CLI) | payer MEDICARE, OTHER, SELFPAY ==
[2024-03-31 18:00] LABS: BUN Creatinine Ratio 25.9 (6-22); Blood Urea Nitrogen 21 mg/dL (7-17); Calcium 9.1 mg/dL (8.4-10.2); Carbon Dioxide 27 mmol/L (22-32); Chloride 104 mmol/L (98-107); Estimated Glomerular Filt Rate > 60 mL/min (>60); Glucose 88 mg/dL (80-110); HEMOLYSIS < 15 (0-50); Potassium 3.7 mmol/L (3.4-5.1); Sodium 134 mmol/L (137-145)
[2024-03-31 18:18] LABS: Vitamin D 25 Hydroxy (D3) 69.3 ng/mL (30.0-100.0)
== END ==
PROVIDERS: PCP Family Medicine; Referring Provider Family Medicine; Visit Provider Family Medicine
DX: M81.0 Age-related osteoporosis without current pathological fracture (principal)
CPT/HCPCS: 36415; 80048; 82306; 82310; 83970

== ENCOUNTER → 2024-10-22 16:35 | Outpatient (CLI) | payer MEDICARE, OTHER, SELFPAY ==
[2024-10-22 17:38] LABS: Add Manual Diff / Slide Review NO; Basophils Absolute Auto 0 /uL (0-100); Basophils Percent Auto 0.8 % (0-2); Eosinophils Absolute Auto 200 /uL (0-450); Hematocrit 38.3 % (36-46); Hemoglobin 12.7 g/dL (12.0-16.0); Lymphocytes Absolute Auto 1800 /uL (1100-4500); Lymphocytes Percent Auto 37.4 % (25-40); Mean Corpuscular HGB Conc 33.3 % (30-36); Mean Corpuscular Volume 90.1 fL (80-100); Monocytes Absolute Auto 400 /uL (0-900); Monocytes Percent Auto 8.6 % (3-14); Neutrophils Absolute Auto 2400 /uL (1500-7000); Neutrophils Percent Auto 49.2 % (50-75); Platelet Count 258 X10^3/uL (150-400); Red Blood Cell Count 4.24 X10^6/uL (4.0-5.2); Red Cell Distribution Width 13.8 % (11.6-14.8); White Blood Cell Count 4.9 X10^3/uL (4.5-11.0)
[2024-10-22 18:00] LABS: Alanine Aminotransferase 23 IU/L (<35); Albumin 4.2 g/dL (3.5-5.0); Albumin Globulin Ratio 1.8 (1.0-2.8); Alkaline Phosphatase 48 U/L (38-126); Aspartate Aminotransferase 36 IU/L (14-36); BUN Creatinine Ratio 26.7 (6-22); Bilirubin Total 0.4 mg/dL (0.2-1.3); Blood Urea Nitrogen 20 mg/dL (7-17); Calcium 9.5 mg/dL (8.4-10.2); Carbon Dioxide 26 mmol/L (22-32); Chloride 101 mmol/L (98-107); Estimated Glomerular Filt Rate > 60 mL/min (>60); Globulin 2.4 g/dL (1.7-4.1); Glucose 92 mg/dL (80-110); HEMOLYSIS < 15 (0-50); Sodium 134 mmol/L (137-145); Total Protein 6.6 g/dL (6.3-8.2)
== END ==
LOC: LAB 16:36
PROVIDERS: PCP Family Medicine; Referring Provider Family Medicine; Visit Provider Family Medicine
DX: E78.00 Pure hypercholesterolemia, unspecified (principal); M81.0 Age-related osteoporosis without current pathological fracture
CPT/HCPCS: 36415; 80053; 85025

== ENCOUNTER → 2025-01-12 16:17 | Outpatient (CLI) | payer MEDICARE, OTHER, SELFPAY ==
--- NOTE | 2025-01-12 16:20 | DI.RAD.S_ITS ---
PROCEDURE: XR CERVICAL SPINE 4V OR 5V INDICATIONS: NECK PAIN TECHNIQUE: 5 views of the cervical spine acquired. COMPARISON: [facility], CR, XR CERVICAL SPINE 4V OR 5V, 10/14/2023, 7:43. FINDINGS: Bones: 3 mm anterolisthesis of C4 on C5 is again seen unchanged from prior study. Degenerative disc disease throughout cervical spine is again seen with bilateral uncovertebral hypertrophic changes. Oblique images demonstrate bilateral bony foraminal stenosis at C3-4 through C5-6 levels. Soft tissues: No prevertebral soft tissue swelling. IMPRESSION: Peuz-gr-ntgiikai degenerative disc disease throughout cervical spine. No acute fracture or dislocation. Minimal anterolisthesis of C4 on C5. Suggestion of bilateral bony foraminal stenosis at C3-4 through C5-6 levels . Dictated by: Rudolph Riddle M.D. on 01/12/2025 at 16:58 Approved by: Rudolph Riddle M.D. on 01/12/2025 at 16:59
== END ==
PROVIDERS: PCP Family Medicine; Referring Provider Physical Medicine & Rehabilitation; Visit Provider Physical Medicine & Rehabilitation
DX: M50.10 Cervical disc disorder with radiculopathy, unspecified cervical region (principal); M48.9 Spondylopathy, unspecified
CPT/HCPCS: 72050

== ENCOUNTER → 2025-01-23 08:03 | Outpatient (CLI) | payer MEDICARE, OTHER, SELFPAY ==
[2025-01-23 10:32] LABS: Thyroid Stimulating Hormone 1.68 uIU/mL (0.47-4.68)
== END ==
LOC: LAB 08:05
PROVIDERS: PCP Family Medicine; Referring Provider Family Medicine; Visit Provider Family Medicine
DX: E78.5 Hyperlipidemia, unspecified (principal); M19.90 Unspecified osteoarthritis, unspecified site; M81.0 Age-related osteoporosis without current pathological fracture
CPT/HCPCS: 36415; 84439; 84443

== ENCOUNTER → 2025-01-27 16:09 | Outpatient (CLI) | payer MEDICARE, OTHER, SELFPAY ==
--- NOTE | 2025-01-27 16:10 | DI.MRI.S_ITS ---
PROCEDURE: MR CERVICAL SPINE WO CON INDICATIONS: cervical radiculopathy TECHNIQUE: Noncontrast sagittal T1 spin echo and T2 fast spin echo, sagittal STIR, foraminal oblique sagittal T2 fast spin echo, and axial gradient echo or T2 fast spin echo through the cervical spine. COMPARISON: None. FINDINGS: Image quality: Excellent. Alignment and Curvature: There is minimal anterolisthesis seen at C4-C5, C5-C6, and C6-C7. Bone Marrow: Marrow demonstrates normal overall signal. A T1 vertebral body hemangioma can be seen, with stippled increased signal seen on T1 weighted and T2 weighted imaging, with minimally increased STIR signal. Spinal Cord: Visualized spinal cord has normal size and signal. No cerebellar tonsillar herniation. Paraspinous Soft Tissues: There is an apparent left thyroid cyst seen, measuring 3.5 cm. Prevertebral soft tissues are normal in thickness. C2-C3: No significant abnormality is seen. C3-C4: The disc height is well-preserved. Loss of disc signal is seen at this level. A mild degree of generalized disc osteophyte complex is seen. Moderate facet joint hypertrophy is seen. There is moderate right-sided and bird-bx-qkyyumly left-sided neural foraminal narrowing. No central canal narrowing is seen. C4-C5: The disc height is well-preserved. Loss of disc signal is seen at this level. A mild degree of generalized disc osteophyte complex is seen. There is moderate right-sided and prominent left-sided facet hypertrophy. There is at least moderate left-sided and moderate right-sided neural foraminal narrowing. No central canal narrowing is seen. C5-C6: Moderate loss of disc height is seen. Loss of disc signal is seen. Moderate generalized disc osteophyte complex is seen. There is a superimposed central disc osteophyte protrusion. Moderate facet joint hypertrophy is seen. There is at least moderate right-sided and moderate to severe left-sided neural foraminal narrowing. Moderate central canal narrowing is seen. There is a mild degree of mass effect upon the ventral spinal cord. C6-C7: Ejfn-qs-tzlzqdpo loss of disc height and disc signal can be seen. Mild to moderate disc osteophyte complex is seen. There is a superimposed central disc osteophyte protrusion. Mild to moderate facet hypertrophy can be seen. Mild bilateral neural foraminal narrowing is seen. Mild central canal narrowing is seen. Minimal mass effect can be seen upon the ventral spinal cord. C7-T1: No significant abnormality is seen. IMPRESSION: Multiple levels of cervical spine degenerative change can be seen, which are worst at the C5-C6 level. Additional findings: Apparent left thyroid 3.5 cm cyst T1 vertebral body hemangioma Dictated by: Jesse Toney M.D. on 01/28/2025 at 10:42 Approved by: Jesse Toney M.D. on 01/28/2025 at 10:50
== END ==
PROVIDERS: PCP Family Medicine; Referring Provider Physical Medicine & Rehabilitation; Visit Provider Physical Medicine & Rehabilitation
DX: M47.22 Other spondylosis with radiculopathy, cervical region (principal); D18.09 Hemangioma of other sites
CPT/HCPCS: 72141

== ENCOUNTER → 2025-02-23 16:22 | Outpatient (CLI) | payer MEDICARE, OTHER, SELFPAY ==
--- NOTE | 2025-02-23 16:23 | DI.US.S_ITS ---
PROCEDURE: US THYROID INDICATIONS: eval thyroid cyst TECHNIQUE: Real-time scanning was performed of the thyroid gland, with image documentation. COMPARISON: None. FINDINGS: Thyroid: Right lobe measures 5.4 x 1.5 x 1.4 cm. Left lobe measures 4.9 x 2.0 x 2.4 cm. Isthmus is 0.2 cm thick. Echotexture is homogeneous. Nodule number: 1 Location: Right inferior Size: 1.9 x 1.0 x 1.5cm. Composition: Solid Echogenicity: Hypoechoic Shape: wider than tall. Margins: Smooth Echogenic foci: Punctate Total points: 7 ACR TI-RADS category: 5 Nodule number: 2 Location: Left Size: 3.4 x 1.6 x 3.1 cm. Composition: Cystic Echogenicity: Anechoic Shape: wider than tall. Margins: Smooth Echogenic foci: None Total points: 0 ACR TI-RADS category: 1 Nodule number: 3 IMPRESSION: Lesion 1 is considered category 5. Secondary to size, FNA is recommended. Lesion 2 is considered category 1. No additional follow-up. ACR TI-RADS definitions and recommendations: TI-RADS 1 (benign): 0 points. FNA not needed. TI-RADS 2 (not suspicious): 2 points. FNA not needed. TI-RADS 3: 3 points. * FNA if 2.5 cm or larger, follow up if 1.5 cm or larger (at 1, 3, and 5 years). TI-RADS 4: 4-6 points. * FNA if 1.5 cm or larger, follow up if 1 cm or larger (at 1, 2, 3, and 5 years). TI-RADS 5: 7 points or more. * FNA if 1 cm or larger, follow up if 0.5 cm or larger (every year for 5 years). Dictated by: Juanita Hagan M.D. on 02/24/2025 at 13:00 Approved by: Juanita Hagan M.D. on 02/24/2025 at 13:07
== END ==
PROVIDERS: PCP Family Medicine; Referring Provider Family Medicine; Visit Provider Family Medicine
DX: E04.2 Nontoxic multinodular goiter (principal)
CPT/HCPCS: 76536

== ENCOUNTER → 2025-03-17 13:42 | Outpatient (CLI) | payer MEDICARE, OTHER, SELFPAY ==
--- NOTE | 2025-03-17 | PATH_ITS ---
Note [facility] Accession Number: [id number] TESTS RESULT FLAG UNITS REF RANGE LAB Clinician Provided Cytology Information No. of containers..01 Other (Miscellaneous) No. of containers..02 Previously Prepared Cytology Slide Source: RIGHT THYROID INFERIOR NODULE DIAGNOSIS: RIGHT THYROID INFERIOR NODULE [place] CATEGORY III. ATYPIA OF UNDETERMINED SIGNIFICANCE. MODERATELY CELLULAR, PREDOMINANTLY UNIFORM HURTHLE CELLS. Pathologist ICD10: R89.6 Signed out by: Veronica Avelar DO, Pathologist NPI- [id number] Performed by: Stephen Rolon, Janitor Supervisor ([facility]) Gross description: 30 CC, RED, CLEAR RECIEVED: IN CYTOLYT WITH 6 ALCOHOL FIXED AND 6 QUICK STAINED SLIDES ALSO 1 RNA VIAL WILL ON 07-09-2025.VO /VDU 03/18/2025 0633 Local FLAG LEGEND: L-Low Normal,H-High Normal,LL-Alert Low,HH-Alert High <-Panic Low,>-Panic High,A-Abnormal,AA-Critical Abnormal Performed at: 01 =Z [facility] [address], [place] [address] William Ortega MD, Performed at: 01 [facility] [address], [place], [place] [id number] MD William Ortega MD Phone: [phone]
--- NOTE | 2025-03-17 13:44 | DI.US.S_ITS ---
PROCEDURE: US FINE NEEDLE ASPIRATION INDICATIONS: RIGHT INFERIOR THYROID NODULE TECHNIQUE: The indications, alternatives, benefits, risks, and complications of the procedure were explained to the patient. Written informed consent was obtained and placed in the chart. The area of interest was examined sonographically and a site was chosen for ultrasound guided percutaneous sampling. The skin was prepared and draped in the usual fashion, and anesthetized with 1% lidocaine infiltrated from the skin down to the lesion. Multiple passes were then performed, with contents emptied into an appropriate pathology specimen container. A bandage was applied to the area of access at completion of the study. COMPARISON: None. FINDINGS: Location(s) of lesion(s) sampled: Right thyroid lobe inferiorly [place]: 25 gauge hypodermic needles. Number of passes: 6 Medications: 1% lidocaine for local anaesthesia. Complications: None. IMPRESSION: Successful ultrasound-guided right thyroid lobe nodule fine needle aspiration, with cytology results pending. Dictated by: Faizan Salvador M.D. on 03/17/2025 at 20:58 Approved by: Faizan Salvador M.D. on 03/17/2025 at 21:00
== END ==
LOC: US 13:43
PROVIDERS: PCP Family Medicine; Referring Provider Family Medicine; Visit Provider Family Medicine
DX: E04.1 Nontoxic single thyroid nodule (principal)
CPT/HCPCS: 10005

== ENCOUNTER 2025-03-18 09:15 | Outpatient (CLI) | payer MEDICARE, OTHER, SELFPAY ==
[2025-03-18] VITALS (8 sets, daily range): BP systolic 93–134; BP diastolic 49–65; PULSE 4–89; RESP 14–16; TEMP 36.4; O2SAT 98–100
[2025-03-18] MEDS: MIDAZOLAM 2 MG/2 ML VIAL IV (10:05)
[2025-03-18] MEDS: BUPIVACAINE 0.25% (PF) VIAL 2 ML INJ (10:10)
[2025-03-18] MEDS: iopamidoL 15 ML VIAL 3 ML INJ (10:10)
[2025-03-18] MEDS: DEXAMETHASONE 10 MG/ML VIAL 20 MG INJ (10:10)
--- NOTE | 2025-03-18 10:23 | P.PCN_ITS ---
Date/Time/Diagnoses Date of procedure: 03/18/25 Time of procedure: 10:23 Pre-procedure diagnosis: 1. CERVICAL STENOSIS, 2. CERVICAL HNP WITH UPPER EXTREMITY RADICULAR FEATURES Post-procedure diagnosis: same Procedure Notes Procedure: 1. FLUORSCOPICALLY GUIDED CONTRAST CONTROLLED INTERLAMINAR EPIDURAL STEROID INJECTION - C6/7 TL RAMU Indications: Lynn is referred by Dr. Wright for treatment of Cervical HNP with Upper Extremity Paresthesias. Physician: Denis Maurer Total Fluoroscopy time (seconds): 29 Total sedation minutes: 16 Complications: none Procedure in detail & Post-procedure care: FINDINGS Cervical Stenosis due to disc deterioration and nerve root irritation and nerve root irritation DESCRIPTION OF PROCEDURE Fluoroscopically guided, contrast-controlled C6/7 translaminar epidural steroid injection with conscious sedation. Following review of allergy and review of potential side effects and complications, including, but not necessarily limited to, infection, allergic reaction, local tissue breakdown, temporary as well as permanent nerve injury, stroke, paralysis, and possible , the patient indicated that patient understood and agreed to proceed. An informed consent document was signed by the patient, witnessed by a nurse, and placed in the patient's chart. Additionally, other treatment options including modalities, medications, and physical therapy were reviewed with the patient. After review of previous anaesthesic history and IV conscious sedation the patient was deemed safe to proceed with today?s procedure with IV conscious sedation as ASA class II designation. Safety time-out was performed to confirm patient ID, procedure to be performed and site of procedure. IV sedation was accomplished with a combination of 2mg of Versed administered by the RN after DO order, titrated to patient comfort during the course of the procedure while the patient remained responsive to all verbal commands. In the prone position, following sterile prep and drape of the cervical region, the C6/7 translaminar space was identified fluoroscopically. The skin was anesthetized via a 25-gauge 1.5-inch needle with 1% lidocaine solution. At this point, a 25-gauge, 2.5-inch short bevel spinal needle was atraumatically introduced and advanced under fluoroscopic guidance into epidural space at the C6/7 translaminar space. Depth was confirmed on lateral view. Radiological data, including multiple fluoroscopic views of the cervical spine, reveal a spinal needle at the C6/7 translaminar space. Lateral views then show placement of the needle in the epidural space. Subsequent views show contrast material flowing superiorly and inferiorly in the epidural space. DSA fluoroscopy with live contrast injection, once again, confirmed no vascular or intrathecal uptake. At this point, using loss of resistance technique with saline and air, the epidural space was entered. Following negative aspiration, injection of approximately 1.5 cc of Isovue-200 with live fluoroscopy in the AP view confirmed epidural flow in the epidural space without vascular or intrathecal uptake observed. Subsequently, a test dose of 1 cc of 1% lidocaine solution was injected and patient was observed for two minutes without signs or symptoms of complications, including abdominal pain, shortness of breath, bilateral upper or lower extremity weakness, nausea and vomiting, prior to steroid injection. At this point, 2cc or 20mg of dexamethasone was then injected without incident. The patient tolerated the procedure well without signs or symptoms of comp lications prior to being transferred to the recovery area for further monitoring, The patient was then transferred to the recovery area where they were observed for an appropriate period of time after the injection. The patient reported a VAS score of 6 prior to the procedure and a post-procedure VAS of 0. POST OP INSTRUCTIONS The patient was provided a Pain Log to continue to record their response to the target-specific procedure prior to follow-up visit with the referring provider. Additionally, specific post-injection care instructions and a contact number to our office were provided if concerns arise regarding possible complications associated with the procedure are suspected.
== END 2025-03-18 10:40 | disposition home or self-care (01) ==
LOC: RAD 09:15
PROVIDERS: PCP Family Medicine; Referring Provider Physical Medicine & Rehabilitation; Visit Provider Physical Medicine & Rehabilitation
DX: M50.123 Cervical disc disorder at C6-C7 level with radiculopathy (principal); M48.02 Spinal stenosis, cervical region
CPT/HCPCS: 62321; 99152; J1100; J2250; J3490

== ENCOUNTER → 2025-07-05 10:40 | Outpatient (CLI) | payer MEDICARE, OTHER, SELFPAY ==
--- NOTE | 2025-07-05 | DI.RAD.S_ITS ---
PROCEDURE: XR LUMBAR SPINE 2-3V INDICATIONS: osteoporosis without current pathological fracture TECHNIQUE: 3 views of the lumbar spine were acquired. COMPARISON: [facility], CR, XR LUMBAR SPINE MIN 4V, 10/14/2023, 7:43. FINDINGS: Bones: Moderate diffuse generalized osseous demineralization. Multilevel disc height loss with adjacent endplate sclerosis and anterior osteophytosis. 5 hya-mtu-obhyihw vertebrae are present. Mild to moderate levoscoliosis has its apex about the L2 vertebral body, which limits the ability to exclude vertebral body compression fractures. No definite acute vertebral body compression fractures. No suspicious bony lesions. Soft tissues: Overlying bowel gas pattern is normal. No suspicious soft tissue calcifications. IMPRESSION: Degenerative change and diffuse generalized osseous demineralization of the lumbar spine without evidence of acute bony abnormality. Vertebral body angulation related to levoscoliosis limits the ability to evaluate for compression fractures. Dictated by: Lon Burk M.D. on 07/06/2025 at 17:54 Approved by: Lon Burk M.D. on 07/06/2025 at 17:56
--- NOTE | 2025-07-05 | DI.RAD.S_ITS ---
PROCEDURE: XR THORACIC SPINE 2V INDICATIONS: osteoporosis without current pathological fracture TECHNIQUE: 2 views of the thoracic spine were acquired. COMPARISON: None. FINDINGS: Bones: No fractures or dislocations. Mild dextroscoliosis has its apex about the T7-T8 interspace. No suspicious bony lesions. 12 pairs of ribs are noted, and appear intact where visualized. Soft tissues: No paravertebral stripe thickening. IMPRESSION: No acute bony abnormality. Dextroscoliosis. Dictated by: Lon Burk M.D. on 07/06/2025 at 17:56 Approved by: Lon Burk M.D. on 07/06/2025 at 17:57
--- NOTE | 2025-07-05 10:47 | DI.RAD.S_ITS ---
PROCEDURE: XR SHOULDER RT MIN 2V INDICATIONS: Right shoulder pain with remote arthroscopy TECHNIQUE: 3 views of the shoulder were acquired. COMPARISON: None. FINDINGS: Bones: No fractures or dislocations. The humeral head is mildly high-riding and there is mild to moderate glenohumeral joint space narrowing and marginal osteophytosis. Fksf-qz-bjxdcwor hypertrophic acromioclavicular arthropathy. No suspicious bony lesions. Visualized ribs appear intact. Soft tissues: No suspicious soft tissue calcifications. IMPRESSION: Degenerative change of the glenohumeral and acromioclavicular joints without evidence of acute bony abnormality. Dictated by: Lon Burk M.D. on 07/06/2025 at 17:54 Approved by: Lon Burk M.D. on 07/06/2025 at 17:54
--- NOTE | 2025-07-05 10:58 | DI.RAD.S_ITS ---
PROCEDURE: XR DEXA AXIAL SKELETON INDICATIONS: SCREENING COMPARISON: [facility], , XR DEXA APPENDICULAR SKELETON, 07/08/2023, 10:43. FINDINGS: Lumbar Spine: Bone mineral density 0.959 g/cm2, T score -1.1 Left Femoral Neck: Bone mineral density 0.565 g/cm2, T score -2.6. Left Hip: Bone mineral density 0.683 g/cm2, T score -2.1 Fracture Risk Calculation (when applicable): 10-year fracture risk of a major osteoporotic fracture 16 percent (with prior fracture 23%) and of a hip fracture 5.1 percent (with prior fracture 7.1%). (T score greater or equal to -1.0 to: NORMAL) (T score from -1.1 to -2.4: OSTEOPENIA) (T score less than or equal to -2.5: OSTEOPOROSIS) IMPRESSION: Osteoporosis Follow-up guidelines as follows: Osteoporosis: Consider a repeat DEXA and Vertebral Fracture Assessment (VFA) exam in 2 years or sooner if medically necessary, to reassess this patient's status. Osteopenia: Consider a repeat DEXA in 2-3 years to reassess this patient's status, or if there is a new clinical indication. Normal: Consider a repeat DEXA in 5 years or sooner, or if there is a new clinical indication. All treatment decisions require clinical judgment and consideration of individual patient factors, including patient preferences, comorbidities, previous drug use, risk factors not captured in the FRAX model (e.g., frailty, falls, vitamin D deficiency, increased bone turnover, interval significant decline in bone density ) and possible under- or over-estimation of fracture risk by FRAX. In addition, the NOF Guide recommends that FDA-approved medical therapies be considered in postmenopausal women and men age >= 50 years with a: * Hip or vertebral (clinical or morphometric) fracture * T-score of <=-2.5 at the spine or hip * Ten-year fracture probability by FRAX of >= 3% for hip fracture or >=20% for major osteoporotic fracture. Approved by: Candy Lauren M.D.,Ph.D. on 07/05/2025 at 23:40
--- NOTE | 2025-07-05 11:09 | DI.MRI.S_ITS ---
PROCEDURE: MR SHOULDER RT WO CON INDICATIONS: Right shoulder impingement w/ hx of previous arthroscopy TECHNIQUE: Noncontrast oblique coronal T2 fast spin echo with fat saturation, oblique sagittal T1 spin echo and T2 fast spin echo with fat saturation, axial T1 spin echo and T2 fast spin echo with fat saturation through the shoulder. COMPARISON: [facility], CR, XR SHOULDER RT 2+ VIEWS, 07/05/2025, 11:16. FINDINGS: Image quality: Excellent. Rotator cuff: There is suggestion of prior rotator cuff tendon surgery with susceptibility artifacts in superior and lateral shoulder soft tissue. Moderate grade bursal surface partial-thickness tear involving anterior to mid fibers of distal supraspinatus at its insertion on the humeral head is seen extending to musculotendinous junction. Distal infraspinatus tendinosis is seen. Low-grade intrasubstance partial-thickness tear involving distal subscapularis is noted. No full- thickness rotator cuff tendon rupture. Sagittal images demonstrate mild supraspinatus muscle atrophy. Bones and bursae: Susceptibility artifacts are noted in lateral humeral head. No gross marrow edema. No acute fracture or dislocation. Mild acromioclavicular joint osteoarthritic changes are seen. Guwe-bc-gefsloar glenohumeral joint osteoarthritic changes also noted. Type 2 acromion, no os acromiale. Small to moderate amount of joint fluid and subacromial subdeltoid bursal fluid. No loose bodies. Capsule and soft tissues: Signal abnormality and fraying involving superior anterior glenoid labrum suggestive of superior anterior glenoid labral tear. Proximal long head of biceps tendinosis is seen. IMPRESSION: 1. Prior rotator cuff repair with postsurgical changes. No gross marrow edema. No acute fracture or dislocation. Mild acromioclavicular joint osteoarthritis and rgcx-ja-cllulsxz glenohumeral joint osteoarthritis. Small to moderate joint effusion and subacromial subdeltoid bursal fluid, no loose bodies. 2. Moderate grade bursal surface partial thickness tear involving distal supraspinatus extending to musculotendinous junction. Distal infraspinatus tendinosis. Low- grade intrasubstance partial-thickness tear involving distal subscapularis. No full- thickness rotator cuff tendon rupture. Mild supraspinatus muscle atrophy. 3. Finding is concerning for superior anterior glenoid labral tear. 4. Proximal intra-articular portion of long head of biceps tendinosis. Dictated by: Rudolph Riddle M.D. on 07/05/2025 at 15:24 Approved by: Rudolph Riddle M.D. on 07/05/2025 at 15:30
== END ==
PROVIDERS: PCP Family Medicine; Referring Provider Internal Medicine Endocrinology, Diabetes & Metabolism; Visit Provider Physical Medicine & Rehabilitation
DX: M75.41 Impingement syndrome of right shoulder (principal); M75.111 Incomplete rotator cuff tear or rupture of right shoulder, not specified as traumatic; M62.511 Muscle wasting and atrophy, not elsewhere classified, right shoulder; M19.011 Primary osteoarthritis, right shoulder; M25.411 Effusion, right shoulder; M81.0 Age-related osteoporosis without current pathological fracture; M41.9 Scoliosis, unspecified
CPT/HCPCS: 72070; 72100; 73030; 73221; 77080

== ENCOUNTER → 2025-07-12 08:32 | Outpatient (CLI) | payer MEDICARE, OTHER, SELFPAY ==
[2025-07-12 09:31] LABS: Blood Urea Nitrogen 19 mg/dL (7-17); Calcium 8.9 mg/dL (8.4-10.2); Carbon Dioxide 26 mmol/L (22-32); Chloride 101 mmol/L (98-107); Estimated Glomerular Filt Rate > 60 mL/min (>60); Glucose 100 mg/dL (70-99); HEMOLYSIS < 15 (0-50); Potassium 4.0 mmol/L (3.4-5.1); Sodium 134 mmol/L (137-145)
[2025-07-12 09:32] LABS: Creatinine 24 Hour Urine 979 mg/day (800-1800); Total Volume Urine 2900 mL
[2025-07-12 09:48] LABS: Vitamin D 25 Hydroxy (D3) 64.4 ng/mL (30.0-100.0)
[2025-07-12 10:01] LABS: TSH w/ Reflex to FT4 1.09 uIU/mL (0.47-4.68)
[2025-07-12 10:27] LABS: Calcium 24 Hour Urine 209 mg/day (100-300); Total Volume Urine 2900 mL
== END ==
PROVIDERS: PCP Family Medicine; Referring Provider Internal Medicine Endocrinology, Diabetes & Metabolism; Visit Provider Internal Medicine Endocrinology, Diabetes & Metabolism
DX: E89.0 Postprocedural hypothyroidism (principal); M81.0 Age-related osteoporosis without current pathological fracture
CPT/HCPCS: 36415; 80048; 82306; 82340; 82523; 82570; 83970; 84443

== ENCOUNTER → 2025-09-15 16:14 | Outpatient (CLI) | payer MEDICARE, OTHER, SELFPAY ==
[2025-09-15 17:43] LABS: Free T4, Direct Thyroxine 2.25 ng/dL (0.78-2.19)
[2025-09-15 17:56] LABS: Thyroid Stimulating Hormone 0.124 uIU/mL (0.47-4.68)
== END ==
PROVIDERS: PCP Family Medicine; Referring Provider Family Medicine; Visit Provider Family Medicine
DX: E04.9 Nontoxic goiter, unspecified (principal); E04.1 Nontoxic single thyroid nodule
CPT/HCPCS: 36415; 84439; 84443

== ENCOUNTER → 2025-10-12 09:34 | Outpatient (CLI) | payer MEDICARE, OTHER, SELFPAY ==
--- NOTE | 2025-10-12 14:01 | ST.SWALLOW ---
Visit Care Team Role Provider Type Alfie Wright DO Attending Provider Physician Family Provider Primary Care Provider Referring Provider Specialty: Family Practice Address: [address] [place] [address], [facility] Email: [email or web address] Modified Barium Swallow Study PHARMACEUTICAL OPERATOR Modified Barium Swallow Study Start: 10/12/25 12:36 Freq: Status: Active Protocol: Document 10/12/25 12:37 LNK (Rec: 10/12/25 14:00 LNK Desktop) Modified Barium Swallow Study Total Time Visit Start Time 10:00 Visit Stop Time 10:45 Total Visit Minutes 45 Referral Referring Physician Alfie Wright MD Reason for Referral dysphagia Setting Setting Outpatient Care Patient Information Identification Type Name,Date of Patient History Pt was seen for a Modified Barium Swallow study with c/ o a hoarse voice and choking on her saliva. Pt reported that, in June,, she had surgery for thyroid removal on d/t a larger cyst on the left side of her throat and a nodule on the right side, which were both benign. She was seen for a voice evaluation on 10/04 2025 at . The results of that evaluation indicated vocal dysphonia. ST had recommended that pt wait a month to start therapy in order to complete healing from her surgery. ST also recommended Pt have a MBS completed to objectively assess swallow function . Pt has a reported PMH that includes GERD, a small hiatal hernia, cervical spine disease and cervical rediculopathy. She denied any neurological diagnoses or head/neck injury or surgery. Subjective Pt was seated in the flouroscopy chair with directions Observations and procedures explained for her. She indicated he understood and agreed to proceed. Patient Positioning Position View Lat-A/P Imaging Lateral View Textures Administered Trials Presented Thin Liquid via Spoon (IDDSI 0),Thin Liquid via Cup ( IDDSI 0),Extremely Thick Liquid via Spoon (IDDSI 4), Regular (IDDSI 7) Barium Tablet Yes The IDDSI Framework Protocol: IDDSI.1 Oral Impairment Source: The Modified Barium Swallow Impairment Profile (MBSImP??) Lip Closure No labial escape Tongue Control Cohesive bolus between tongue to palatal seal During Bolus Hold Bolus Preparation/ Timely & efficient chewing & mashing Mastication Bolus Transport/ Brisk tongue motion Lingual Motion Oral Residue Complete oral clearance Initiation of Bolus head in valleculae Pharyngeal Swallow Additional Oral *OME and DKS were observed to be WNL. Impairment *Dentition natural and in good hygiene Observations *Mastication observed with rotary chew pattern. *Good bolus formation, control and AP transition. *Velopharyngeal closure was WNL. *Oral phase of swallow observed to be WNL Pharyngeal Impairment Source: The Modified Barium Swallow Impairment Profile (MBSImP??) Soft Palate No bolus between soft palate & pharyngeal wall Elevation Laryngeal Elevation Comp.sup.move.thyroid cart.w/comp.approx.arytenoids to epiglot petiole Anterior Hyoid Complete anterior movement Excursion Epiglottic Movement Complete inversion Laryngeal Vestibular Incomplete; narrow column air/contrast in laryngeal Closure vestibule Pharyngeal Stripping Present - complete Wave Pharyngoesophageal Complete distention & complete duration; no obstruction Segment Opening of flow Tongue Base Narrow column of contrast/air betwn tongue base & post. Retraction pharyngeal wall Pharyngeal Residue Trace residue within/on pharyngeal structures Location Valleculae Additional *Cervical opsteophytes at C4-C5 and C7-T1 were observed Pharyngeal to narrow and alter shape of the esophagus. Bolus flow Impairment was not impeded through pharynx/UES Observations *Hyoid/laryngeal elevation and epiglottic inversion were judged to be reduced *Tongue base retraction was mildly reduced resulting in trace residue. *Post-swallow residue was noted at the valleculae and pyriform sinuses during liquid trials. *Pharyngeal stripping wave and cricopharyngeal opening appeared adequate and did not appear to impede bolus flow. *Laryngeal penetration was observed x3 (PAS 2 above vocal folds/no visible laryngeal residue) with consecutive swallows (high volume at a rapid rate of flow) *Mild pharyngeal phase with base of tongue weakness, incomplete seal of the laryngeal vestibule for large, rapid swallows of liquid A/P View The IDDSI Framework Protocol: IDDSI.1 A/P View Observations Esophageal Clearance Esophageal retention w/regtrograde flow below Upright Position pharyngoesoph segment Esophageal Function Poor Motility,Reverse Peristalsis,Stasis Additional A-P Thin barium, pudding thick barium and calibrated barium Observations tablet provided for AP trials After moving from lateral to AP position: *Esophageal containment of trials observed from UES to LES with retro-flow observed *Single swallow of water and a swallow of barium liquid partially cleared residue * Esophageal residue remained after liquids *Calibrated barium tablet was observed to clear the esophagus in a timelymanner Clinical Impressions Dysphagia Type Pharyngeal,Esophageal Findings Pt presented with normal oral phase of swallowing with mild pharyngeal and moderate esophageal dysphagia. Pharyngeally, base of tongue weakness and reduced hyolaryngeal elevation result were observed. Epiglottic inversion was noted to be adequate, but the closure of the laryngeal vestibule was incomplete. Laryngeal penetration was observed x 3 with consecutive swallows of liquid. This increases the pt's risk for aspiration. Poor esophageal motility with significant stasis was observed when pt was repositioned from lateral to AP. More than 1 swallow of liquid was necessary to clear the esophagus. Barium liquid alone and a calibrated barium tablet were observed to clear the esophagus as expected. Solid food trials were retained. The results and recommendations of the MBSS were described to the pt while observing still pictures taken during the MBSS. Pt was encouraged to alternate fluids with solids during meals to prevent/reduce stacking of solid foods, allowing for a gravity assist in clearance of the esophagus. Swallow therapy was also recommended to increase base of tongue strength ang hyolaryngeal elevation and movement, strengthening closure/protection of the airway. Pt expressed appreciation and indicated she understood. All pt questions were addressed. Rehabilitation Excellent Potential Patient Appropriate Yes: Base of tongue strength exercises/effortful for Therapy swallow exercises Recommendations Diet Comments No diet cvhanges were recommende Treatment Plan Therapy Outpatient Speech Therapy Recommendations
== END ==
PROVIDERS: Family Provider Family Medicine; PCP Family Medicine; Referring Provider Family Medicine; Visit Provider Family Medicine
DX: R13.10 Dysphagia, unspecified (principal)
CPT/HCPCS: 74230; 92611

== ENCOUNTER 2025-10-21 08:12 | Outpatient (CLI) | payer MEDICARE, OTHER, SELFPAY ==
[2025-10-21] VITALS (9 sets, daily range): BP systolic 101–134; BP diastolic 52–66; PULSE 69–89; RESP 16–18; TEMP 36.2; O2SAT 95–100
[2025-10-21] MEDS: MIDAZOLAM 2 MG/2 ML VIAL IV (09:34)
[2025-10-21] MEDS: BETAMETHASONE 30 MG/5 ML MDV 12 MG INJ (09:37)
--- NOTE | 2025-10-21 09:49 | PM.PROC.IR.1 ---
Date/Time/Diagnoses Date of procedure: 10/21/25 Time of procedure: 09:49 Pre-procedure diagnosis: Sacroiliac Joint Pain/DJD Post-procedure diagnosis: same Procedure Notes Procedure: Fluoroscopically guided contrast controlled left sacroiliac joint injection Indications: Lynn is referred by Dr. Wright for treatment of left sacroiliac joint DJD Physician: Denis Maurer Total Fluoroscopy time (seconds): 12 Total sedation minutes: 10 Complications: none Procedure in detail & Post-procedure care: DESCRIPTION OF PROCEDURE Fluoroscopic guided, contrast controlled left sacroiliac joint injection Following review of allergies and review of potential side effects and complications, including, but not necessarily limited to, infection, allergic reaction, local tissue breakdown, temporary as well as permanent nerve injury, paralysis, stroke and possible , the patient indicated that they understood and agreed to proceed. An informed consent was signed by the patient, witnessed by a nurse, and placed in the patient's chart. Additionally, other treatment options including modalities, medications, and physical therapy were reviewed with the patient. After review of previous anaesthesic history and IV conscious sedation the patient was deemed safe to proceed with today?s procedure with IV conscious sedation as ASA class II designation. Safety time-out was performed to confirm patient ID, procedure to be performed and site of procedure. IV sedation was accomplished with a combination of 2mg of Versed administered by the RN after DO order, titrated to patient comfort during the course of the procedure while the patient remained responsive to all verbal commands. In the prone position following sterile prep and drape of the pelvic region, the hyper lucency on in the inferior aspect of the left sacroiliac joint was identified fluoroscopically the skin was anesthetized be a 25 gauge 1 eventual with approximately 2cc of 1% lidocaine solution. At this point, a 22 gauge 3inch spinal needle was atraumatically introduced and advanced under fluoroscopic guidance into the inferior aspect of the left sacroiliac joint. Following negative aspiration, approximately 0.3cc of Isovue-300 was injected confirming intra-articular placement without vascular uptake. Radiographic data, including multiple fluoroscopic views of the pelvis, reveals a spinal needle in the left sacroiliac joint hyper lucent zone. Subsequent view show flow contrast tear superiorly and inferiorly within the joint capsule without vascular intrathecal uptake. At this point a total of 1cc or 0.5% Marcaine was combined with 2cc of 12mg of betamethasone was injected without incident. The patient tolerated the procedure well without signs or symptoms of complications prior to transfer to the recovery area for further monitoring. The patient was then transferred to the recovery area with a bur observed for an appropriate time after the injection. The patient reverted a vas score of 7 prior to the procedure and postprocedure vas of 1. POSTOP INSTRUCTIONS The patient was provided with a pain like to continue to record the patient's response to the target specific procedure prior to the patient's follow-up visit with the referring physician. Additionally, specific post injection care instructions and a contact number to our office were provided if concerns arise regarding the possible complications associated with procedure are suspected.
== END 2025-10-21 10:12 | disposition home or self-care (01) ==
LOC: RAD 08:12
PROVIDERS: PCP Family Medicine; Referring Provider Physical Medicine & Rehabilitation; Visit Provider Physical Medicine & Rehabilitation
DX: M46.1 Sacroiliitis, not elsewhere classified (principal); M53.3 Sacrococcygeal disorders, not elsewhere classified
CPT/HCPCS: 27096; 99152; J0702; J2250

== ENCOUNTER 2025-11-03 13:45 | Outpatient (RCR) | payer MEDICARE, OTHER, SELFPAY ==
--- NOTE | 2025-10-05 11:05 | ST.OPPOC ---
Physical, Occupational & Speech Therapy At [facility] Visit Care Team Role Provider Type Alfie Wright DO Attending Provider Physician Family Provider Primary Care Provider Referring Provider Address: [address] [place] [address], [id number] Speech Pathology Plan of Care Plan of Care Dates 10/04/25-01/04/[address] Wright Patient History Pt is a 75 year old female seen this date for voice evaluation secondary to thyroid removal on 06/07/25 d/t a larger cyst on the left side and a nodule on the right, which were both benign. Pt reports since her surgery she has had a hoarse vocal and cannot sing like she used to d/t not being able to hit certain notes. She reports singing is a huge passion of hers and she would love to be able to sing again. Pt reports surgeon stated healing process would take about 3 months, with Pt starting month 4 of her recovery. Additionally, Pt also reports occasional choking on saliva. Voice/Resonance Findings Mild Impairment Voice/Resonance Assessment A voice examination was administered in order to assess different aspects of Pt's voice such as resonance, quality, loudness, pitch, breath support. Pt also completed the Voice Handicap Index, measuring self- perception of voice. Respiration Respiration was assessed by observing the pt?s breathing during speech tasks. Breath support adequate during reading, functional phrases tasks, and conversation Phonation Loudness: WFL Pitch: WFL Quality: Perceptually mildly hoarse Maximum Phonation Time (MPT): 15 seconds = WNL; Typically with no laryngeal pathology, adult females can sustain vowel sounds for between 15-25 seconds. MPT is the maximum time in seconds for which a person can sustain a vowel sound /a/ when produced on one deep breath at a relatively comfortable pitch and loudness . MPT is not a diagnostic of laryngeal pathology; however, is useful as an indicator of laryngeal pathology. To obtain the patient?s MPT, the patient was asked to take a deep breath and sustain the vowel sound ?ah? for as long as possible at a comfortable pitch and loudness on one exhalation, without straining. The best of three attempts at sustaining the vowel sound was used as the patient?s MPT. S/Z Ratio: 18/18 = 1 Below Average; WFL = ~20-25 seconds for both phonemes equaling a ration of 1. The /z / shorter than /s/ = laryngeal impairment. Both /s/ and /z/ reduced = respiratory impairment. 1.4 or less is WNL . The s/z ratio is an assessment tool used as an indicator of potential laryngeal pathology. Using the s/z ratio, the patient is asked to sustain the ?s? sound (voiceless) and the ?z? sound (voiced). These two values are then divided to obtain a numerical ration. The higher the figure, the greater the possibility that the person is experiencing difficulty with phonation. Resonance Hyponasality and hypernasality were assessed by having the pt repeat two sentences with and without the nares occluded . Pt?s speech presented with neither. Prosody Prosody was assessed throughout the evaluation during various speaking tasks. Pt demonstrated good ability to vary stress and intonation and imitate different stress patterns produced by the RETAIL SUPPORT MANAGER. VOICE HANDICAP INDEX (VHI) The VHI is a tool designed to measure the patient?s perception of the impact of their voice disorder. The patient is asked to rate 30 statements on a scale of 0 ? never? to 4 ?always?. A score of 1-30 indicates mild severity, 31-60 indicates moderate severity, and 60-120 indicates severe severity. The patient scored 23/120 on the VHI administered with a classification of mild severity with her rating the highest in the physical category. Pt denies any pain in her throat area, however reports it feels ?fatigued? . She really wants to get back to singing, however d/t her having had her surgery about 4 months ago, ST recommends Pt hold off on voice therapy at this time in order to allow a little more recovery time. However, Pt also reported occurrences of choking on saliva. ST recommends Pt have a MBS completed to objectively assess swallow function. ST to keep Pt on caseload until after MBS, which she will then plan to do a full swallow evaluation/provide education on MBS results. ST to f/u with Pt?s voice in about a month to see how her voice is sounding and throat is feeling to possibly then initiate voice exercises. Pt verbalized understanding to all recommendations. Voice/Resonance Prognosis Good Voice/Resonance Yes Recommendations Voice/Resonance Treatment F/U after MBS for swallow;F/U in month reassess Frequency voice Short Term Goals 1. Patient will demonstrate forward-focused, resonant voice production with 80% accuracy during structured tasks (e.g., humming, nasal consonant words, phrases) with minimal verbal and visual cues. 2. Patient will identify and reduce signs of vocal strain (e.g., throat tension, pressed phonation) in structured therapy tasks with 80% accuracy given moderate cues. 3. Patient will verbalize understanding of 3?4 vocal hygiene strategies (e.g., hydration, voice rest, avoiding throat clearing) and demonstrate consistent use over 2 consecutive sessions. Longterm Goals LTG 1: Patient will demonstrate improved vocal quality and efficiency characterized by reduced hoarseness, appropriate resonance, and functional use of voice across daily speaking situations with minimal cues, to support effective and healthy communication. Comment: Electronically Signed by: ALBERTO Ferrara 10/05/25 8603 If you are in agreement with this Plan of Care, please return a signed and dated copy. I have reviewed this Plan of Care and certify that the skilled therapy services above are required to meet the patient?s needs. Physician Signature Date Printed Name and Credentials Clinical Instructor Signature Printed Name and Credentials
--- NOTE | 2025-10-15 16:23 | ST.OPTN ---
Visit Care Team Role Provider Type Alfie Wright DO Attending Provider Physician Family Provider Primary Care Provider Referring Provider Address: [address] [place] [address], [id number] INFORMATICS NURSE SPECIALIST Treatment Note INFORMATICS NURSE SPECIALIST Treatment Note Start: 10/15/25 15:08 Freq: Status: Active Protocol: Document 10/15/25 16:14 MA (Rec: 10/15/25 16:23 MA Desktop) Speech Pathology Treatment Note Session Time Visit Start Time 14:30 Visit Stop Time 15:00 Total Visit Minutes 30 Visit Information Visit Number 2 Plan of Care Dates 10/04/25-01/04/26 Next Note Type Next Note Type Treatment Note General Information Patient History Pt is a 75 year old female seen this date for voice evaluation secondary to thyroid removal on 06/07/25 d/t a larger cyst on the left side and a nodule on the right , which were both benign. Pt reports since her surgery she has had a hoarse vocal and cannot sing like she used to d/t not being able to hit certain notes. She reports singing is a huge passion of hers and she would love to be able to sing again. Pt reports surgeon stated healing process would take about 3 months, with Pt starting month 4 of her recovery. Additionally, Pt also reports occasional choking on saliva. Subjective Identification Type Name Observations/Patient Pt arrived to therapy on time. Presentation Objective Prison Goals LTG 1: Patient will demonstrate improved vocal quality and efficiency characterized by reduced hoarseness, appropriate resonance, and functional use of voice across daily speaking situations with minimal cues, to support effective and healthy communication. Treatment Activities ST provided education and review of the patient?s Modified Barium Swallow (MBS) results. Based on findings, ST facilitated hyolaryngeal strengthening exercises, including the Natalie maneuver, effortful swallow, Puneet maneuver, chin tuck against resistance and sustained ?eee? phonation (also beneficial for improving vocal quality). ST further educated the patient on the plan to introduce additional voice exercises during the next treatment session. Assessment Patient Response to Excellent Treatment Rehab Potential Excellent Impairments Swallow,Voice Identified Progress Towards Excellent Progress Goals Assessment of ST reviewed and educated Pt on MBS results. Pt reports Improvement she will be talking with her PCP about seeing her GI doctor since she has not seen them in about [address] provided Pt with swallow exercises with Pt demonstrating back with about 100% accuracy. She exhibited some difficulty performing the Puneet, however benefited from visual and verbal cues. ST plan to introduce Pt to vocal function exercises, semi occluded vocal tract and resonant voice exercises during next session. Reviewed with Goals,Progress Being Made,Home Exercise Program Patient
--- NOTE | 2025-10-20 12:51 | ST.OPTN ---
Visit Care Team Role Provider Type Alfie Wright DO Attending Provider Physician Family Provider Primary Care Provider Referring Provider Address: [address] [place] [address], [id number] TANK PROCESSOR Treatment Note TANK PROCESSOR Treatment Note Start: 10/15/25 15:08 Freq: Status: Active Protocol: Document 10/20/25 12:47 MA (Rec: 10/20/25 12:51 MA Desktop) Speech Pathology Treatment Note Session Time Visit Start Time 12:15 Visit Stop Time 12:45 Total Visit Minutes 30 Visit Information Visit Number 3 Plan of Care Dates 10/04/25-01/04/26 Next Note Type Next Note Type Treatment Note General Information Patient History Pt is a 75 year old female seen this date for voice evaluation secondary to thyroid removal on 06/07/25 d/t a larger cyst on the left side and a nodule on the right , which were both benign. Pt reports since her surgery she has had a hoarse vocal and cannot sing like she used to d/t not being able to hit certain notes. She reports singing is a huge passion of hers and she would love to be able to sing again. Pt reports surgeon stated healing process would take about 3 months, with Pt starting month 4 of her recovery. Additionally, Pt also reports occasional choking on saliva. Subjective Identification Type Name Observations/Patient Pt arrived to therapy on time. Pt brought in her Presentation swallow exercises and reports she has been practicing them at home without difficulties. Objective Court Worker Goals LTG 1: Patient will demonstrate improved vocal quality and efficiency characterized by reduced hoarseness, appropriate resonance, and functional use of voice across daily speaking situations with minimal cues, to support effective and healthy communication. Treatment Activities ST provided the patient with handouts, education, and demonstrations of semi-occluded vocal tract (SOVT) exercises to promote decreased laryngeal strain and improve vocal efficiency. Exercises were modeled to support the patient in learning techniques that reduce pressure on the vocal folds during phonation. Assessment Patient Response to Excellent Treatment Rehab Potential Excellent Impairments Voice Identified Progress Towards Excellent Progress Goals Assessment of The patient reported that she will be seeing her PCP on Improvement Saturday and plans to discuss a referral to her GI physician, as she has not followed up in approximately 10 years and suspects that reflux may be contributing to her voice and throat symptoms. The patient completed SOVT exercises with 100% accuracy , demonstrating increased awareness of her vocal function. ST recommended incorporating these exercises into her home voice program and completing a brief vocal warm-up prior to extended periods of speaking. ST will plan to introduce resonant voice exercises during the next treatment session. Reviewed with Goals,Progress Being Made,Home Exercise Program Patient
--- NOTE | 2025-10-26 14:22 | ST.OPTN ---
Visit Care Team Role Provider Type Alfie Wright DO Attending Provider Physician Family Provider Primary Care Provider Referring Provider Address: [address] [place] [address], [id number] BRIMMING MACHINE OPERATOR Treatment Note BRIMMING MACHINE OPERATOR Treatment Note Start: 10/15/25 15:08 Freq: Status: Active Protocol: Document 10/26/25 14:20 MA (Rec: 10/26/25 14:22 MA Desktop) Speech Pathology Treatment Note Session Time Visit Start Time 13:45 Visit Stop Time 14:20 Total Visit Minutes 35 Visit Information Visit Number 4 Plan of Care Dates 10/04/25-01/04/26 Next Note Type Next Note Type Treatment Note General Information Patient History Pt is a 75 year old female seen this date for voice evaluation secondary to thyroid removal on 06/07/25 d/t a larger cyst on the left side and a nodule on the right , which were both benign. Pt reports since her surgery she has had a hoarse vocal and cannot sing like she used to d/t not being able to hit certain notes. She reports singing is a huge passion of hers and she would love to be able to sing again. Pt reports surgeon stated healing process would take about 3 months, with Pt starting month 4 of her recovery. Additionally, Pt also reports occasional choking on saliva. Subjective Identification Type Name Observations/Patient Pt arrived to therapy on time. Pt brought in her Presentation swallow exercises and reports she has been practicing them at home without difficulties. Objective Cottage Supervisor Goals LTG 1: Patient will demonstrate improved vocal quality and efficiency characterized by reduced hoarseness, appropriate resonance, and functional use of voice across daily speaking situations with minimal cues, to support effective and healthy communication. Treatment Activities ST provided the patient with handouts, education, and demonstrations on resonant voice exercises to promote decreased laryngeal strain and improve vocal efficiency . Exercises were modeled to support the patient in learning techniques that reduce pressure on the vocal folds during phonation. Assessment Patient Response to Excellent Treatment Rehab Potential Excellent Impairments Voice Identified Progress Towards Excellent Progress Goals Assessment of The patient completed resonant voice exercises with 100 Improvement % accuracy, demonstrating increased awareness of her vocal function. She required moderate cues to achieve forward focus and feel vibrations in the facial mask. The patient successfully produced resonant voice at both the word and sentence levels. ST recommended incorporating resonant voice and SOVT exercises into her home voice program and performing a brief vocal warm-up prior to extended periods of speaking. The patient verbalized understanding of all strategies and recommendations. Reviewed with Goals,Progress Being Made,Home Exercise Program Patient
--- NOTE | 2025-11-03 14:14 | ST.OPTN ---
Visit Care Team Role Provider Type Alfie Wright DO Attending Provider Physician Family Provider Primary Care Provider Referring Provider Address: [address] [place] [address], [id number] VIRTUAL REALITY SPECIALIST Treatment Note VIRTUAL REALITY SPECIALIST Treatment Note Start: 10/15/25 15:08 Freq: Status: Active Protocol: Document 11/03/25 14:08 MA (Rec: 11/03/25 14:14 MA Desktop) Speech Pathology Treatment Note Session Time Visit Start Time 13:45 Visit Stop Time 14:05 Total Visit Minutes 20 Visit Information Visit Number 5 Plan of Care Dates 10/04/25-01/04/26 Visit Type Note Type Discharge Summary Next Note Type Next Note Type Treatment Note General Information Patient History Pt is a 75 year old female seen this date for voice evaluation secondary to thyroid removal on 06/07/25 d/t a larger cyst on the left side and a nodule on the right , which were both benign. Pt reports since her surgery she has had a hoarse vocal and cannot sing like she used to d/t not being able to hit certain notes. She reports singing is a huge passion of hers and she would love to be able to sing again. Pt reports surgeon stated healing process would take about 3 months, with Pt starting month 4 of her recovery. Additionally, Pt also reports occasional choking on saliva. Subjective Identification Type Name Observations/Patient Pt arrived to therapy on time. Pt reports she has been Presentation completing voice exercises at home and notices great improvements with her overall voice and is requesting to be discharged today. Objective Short Term Goals 1. Patient will demonstrate forward-focused, resonant voice production with 80% accuracy during structured tasks (e.g., humming, nasal consonant words, phrases) with minimal verbal and visual cues. - GOAL MET 2. Patient will identify and reduce signs of vocal strain (e.g., throat tension, pressed phonation) in structured therapy tasks with 80% accuracy given moderate cues.- GOAL MET 3. Patient will verbalize understanding of 3?4 vocal hygiene strategies (e.g., hydration, voice rest, avoiding throat clearing) and demonstrate consistent use over 2 consecutive sessions.- GOAL MET Toddler Guide Goals LTG 1: Patient will demonstrate improved vocal quality and efficiency characterized by reduced hoarseness, appropriate resonance, and functional use of voice across daily speaking situations with minimal cues, to support effective and healthy communication.- GOAL MET Treatment Activities ST educated Pt on home voice exercise program and discharge recommendations. Assessment Patient Response to Excellent Treatment Rehab Potential Excellent Impairments Voice Identified Progress Towards Excellent Progress Goals Assessment of The patient completed resonant voice exercises with 100 Improvement % accuracy, demonstrating increased awareness of her vocal function. Patient vocal quality appeared clear with no observed hoarseness. She reports overall improvements with her voice and independence with home program. ST recommended Pt continue to practice voice exercises at home including resonant voice. Pt verbalized understanding. ST recommended Pt f/u with PCP or ENT if any changes occur and is welcome to come back to therapy is change in voice occurs. Reviewed with Goals,Progress Being Made,Home Exercise Program Patient Patient/Caregiver Excellent Understanding Plan Frequency of No Further Therapy Treatment Provided Patient/ Home Exercise Program,Plan of Care,Questions/Concerns Caregiver Instruction
== END 2025-11-08 13:18 | disposition home or self-care (01) ==
LOC: SP 13:45
PROVIDERS: Family Provider Family Medicine; PCP Family Medicine; Referring Provider Family Medicine; Visit Provider Family Medicine
DX: R47.9 Unspecified speech disturbances (principal); Z98.890 Other specified postprocedural states; Z90.89 Acquired absence of other organs
CPT/HCPCS: 92507; 92523; 92526

== ENCOUNTER → 2025-11-23 11:28 | Outpatient (CLI) | payer MEDICARE, OTHER, SELFPAY ==
[2025-11-23 13:08] LABS: TSH w/ Reflex to FT4 0.28 uIU/mL (0.47-4.68)
[2025-11-23 13:36] LABS: Free T4, Direct Thyroxine 2.12 ng/dL (0.78-2.19)
== END ==
PROVIDERS: PCP Family Medicine; Referring Provider Family Medicine; Visit Provider Family Medicine
DX: E04.1 Nontoxic single thyroid nodule (principal); E04.9 Nontoxic goiter, unspecified
CPT/HCPCS: 36415; 84439; 84443

== ENCOUNTER → 2025-12-01 08:41 | Outpatient (CLI) | payer MEDICARE, OTHER, SELFPAY ==
--- NOTE | 2025-12-01 08:43 | DI.MRI.S_ITS ---
PROCEDURE: MR LUMBAR SPINE WO CON INDICATIONS: Left Sacral pain with scolosis TECHNIQUE: Noncontrast sagittal T1 spin echo and T2 fast echo, sagittal STIR, and T2 fast spin echo through the lumbar spine. In cases with scoliosis, additional coronal T2 fast spin echo may be performed. COMPARISON: [facility], CR, XR LUMBAR SPINE 2-3V, 07/05/2025, 11:16. CR, XR LUMBAR SPINE MIN 4V, 10/14/2023, 7:43. FINDINGS: Image quality: Excellent. Alignment and Curvature: There is normal bony alignment. Convex left scoliosis of the lumbar spine. Bone Marrow: Modic type 2 reactive endplate changes adjacent to the L2-L3, L3- L4 and L4-L5 discs. No acute vertebral body compression fractures. Spinal Cord: Conus medullaris terminates at the T12 level. Visualized cord demonstrates normal signal and size. Paraspinous Soft Tissues: No paravertebral masses. T12-L1: Loss of disc signal. Mild, diffuse disc bulge. No central stenosis. No neural foraminal narrowing. No neural compression. L1-L2: Loss of disc signal. Mild, diffuse disc bulge. No central stenosis. No neural foraminal narrowing. No neural compression. L2-L3: Loss of disc signal and height. Mild, diffuse disc bulge. Mild bilateral facet hypertrophy. Mild narrowing of the central canal. [id number] right neural foraminal narrowing. No neural compression. L3-L4: Loss of disc signal and height. Moderate, diffuse disc bulge. Mild bilateral facet hypertrophy. Moderate narrowing of the central canal. Moderate bilateral neural foraminal narrowing. No neural compression. L4-L5: Loss of disc signal and height. Mild to moderate diffuse disc bulge. Mild bilateral facet hypertrophy. Mild to moderate narrowing of the central canal. Moderate left neural foraminal narrowing. No neural compression. L5-S1: Loss of disc signal. Mild, diffuse disc bulge. Moderate left facet hypertrophy. No central stenosis. No neural foraminal narrowing. No neural compression. IMPRESSION: Convex left scoliosis. Multilevel degenerative disc disease. Multilevel facet arthropathy. No severe central canal stenosis. No severe neural foraminal stenosis. No neural compression. Dictated by: Bonny Bowers MD, PhD on 12/01/2025 at 12:26 Approved by: Bonny Bowers MD, PhD on 12/01/2025 at 12:29
== END ==
PROVIDERS: PCP Family Medicine; Referring Provider Physical Medicine & Rehabilitation; Visit Provider Physical Medicine & Rehabilitation
DX: M53.3 Sacrococcygeal disorders, not elsewhere classified (principal); M41.9 Scoliosis, unspecified; M51.369 Other intervertebral disc degeneration, lumbar region without mention of lumbar back pain or lower extremity pain; M51.379 Other intervertebral disc degeneration, lumbosacral region without mention of lumbar back pain or lower extremity pain; M48.061 Spinal stenosis, lumbar region without neurogenic claudication; M47.816 Spondylosis without myelopathy or radiculopathy, lumbar region; M47.817 Spondylosis without myelopathy or radiculopathy, lumbosacral region
CPT/HCPCS: 72148